=== PATIENT | female | born 1965 | race Two or more races ===

== ENCOUNTER 2017-11-03 23:01 | Emergency (ER) | payer SELFPAY ==
[~2017-11-03] VITALS: Ht 162.6 cm; Wt 145.1 kg
[~2017-11-03 23:01] MED LIST: ASP81EC PO; CANA100T OR; INSLANTI SC; INSLISPI SC; INSU0.5M41 SC; LEVO75TA6 PO; LOSA50TA6 PO; SITA100T7 PO
[2017-11-03] MEDS ORDERED: SODIUM CHLORIDE 0.9% 1,000 ML IV ONE (23:45)
[2017-11-03 23:49] LABS: Eosinophils # (auto) 0.2 uL; Hemoglobin 15.8 g/dL (12.2-16.2); Lymphocytes # (auto) 1.7 uL; Monocytes # (auto) 0.4 uL; Platelet Count (auto) 199 10^3/uL (140-450); Red Cell Distribution Width 17.2 % (11.8-14.3)
[2017-11-03 23:58] LABS: INR 0.97 (0.9-1.15); Partial Thromboplastin Time 28.8 sec (23.78-33.04); Prothrombin Time 10.4 sec (9.27-12.13)
[2017-11-03 23:59] LABS: Basophils # (auto) 0 uL; Basophils % (auto) 0.5 % (0.0-2.0); Eosinophils % (auto) 2.3 % (0.0-7.0); Hematocrit 48.9 % (36.0-46.0); Lymphocytes % (auto) 24.1 % (10.0-50.0); Mean Corpuscular Hemoglobin 28.3 pg (28.0-32.0); Mean Corpuscular Hgb Conc. 32.2 g/dL (32.0-36.0); Mean Corpuscular Volume 87.9 fL (80.0-100.0); Monocytes % (auto) 5.4 % (0.0-12.0); Neutrophils # (auto) 4.8 uL; Neutrophils % (auto) 67.7 % (37.0-80.0); Nucleated Red Blood Cells % 0.2 %; Red Blood Cells 5.56 10^6/uL (4.0-5.20)
[2017-11-04] LABS: Alanine Aminotransferase 62 U/L (13-56); Albumin 3.1 g/dL (3.4-5.0); Anion Gap 9 (5-15); Aspartate Aminotransferase 36 U/L (15-37); BUN/Creatinine Ratio 18.7; Blood Urea Nitrogen 14 mg/dL (7-18); Calcium 8.1 mg/dL (8.5-10.1); Carbon Dioxide 25 mmol/L (21-32); Chloride 100 mmol/L (98-107); GFR African American 104 mL/min; GFR Non-African American 86 mL/min; Potassium 3.9 mmol/L (3.5-5.1); Sodium 134 mmol/L (136-145)
[2017-11-04 00:02] LABS: Total Protein 8.1 g/dL (6.4-8.2)
[2017-11-04 00:03] LABS: Glucose 445 mg/dL (74-106)
[2017-11-04 00:05] LABS: Alkaline Phosphatase 167 U/L (45-117); Bilirubin, Total 0.4 mg/dL (0.2-1.0)
[2017-11-04] MEDS ORDERED: SODIUM CHLORIDE 0.9% 1,000 ML IV ONE (00:30)
[2017-11-04] MEDS ORDERED: InsuLIN REG 1unit/0.01ml Soln (100units/ml) IV ONE (00:30)
[2017-11-04 02:14] LABS: Urine Bacteria NONE SEEN /hpf (None Seen); Urine Blood Negative /uL (Negative); Urine Specific Gravity 1.024 (1.001-1.035); Urine WBC 1 /hpf (0 - 5)
[2017-11-04 09:21] VITALS: BP 129/91
== END 2017-11-04 10:31 | disposition home or self-care (01) ==
LOC: EDBD 23:01 → EDUNIT# 23:01 → ER 23:10
DX: E11.65 Type 2 diabetes mellitus with hyperglycemia (principal); E86.0 Dehydration; R07.89 Other chest pain; E66.01 Morbid (severe) obesity due to excess calories; G47.30 Sleep apnea, unspecified; E11.9 Type 2 diabetes mellitus without complications; I10 Essential (primary) hypertension; E07.89 Other specified disorders of thyroid; Z68.43 Body mass index [BMI] 50.0-59.9, adult
CPT/HCPCS: 36415; 71045; 80053; 81001; 81025; 82010; 82962; 83690; 84484; 85025; 85610; 85730; 93005; 96361; 96374

== ENCOUNTER 2018-06-12 06:31 | Inpatient (IN) | payer OTHER ==
[~2018-06-12] VITALS: Ht 165.1 cm; Wt 141.1 kg
[~2018-06-12 06:31] MED LIST changes: +LOSA-46 PO; -LOSA50TA6 PO
[2018-06-12] MEDS ORDERED: MORPHINE SULFATE 4 MG/ML SYR/VIAL IV ONE (07:00)
[2018-06-12] MEDS ORDERED: ONDANSETRON HCL 4 MG/2 ML VIAL IV ONE (07:00)
[2018-06-12 07:41] LABS: Basophils # (auto) 0 uL; Basophils % (auto) 0.3 % (0.0-2.0); Eosinophils # (auto) 0.1 uL; Eosinophils % (auto) 1.9 % (0.0-7.0); Hematocrit 50.6 % (36.0-46.0); Hemoglobin 16.9 g/dL (12.2-16.2); Lymphocytes # (auto) 1.5 uL; Lymphocytes % (auto) 22.9 % (10.0-50.0); Mean Corpuscular Hemoglobin 29.1 pg (28.0-32.0); Mean Corpuscular Hgb Conc. 33.4 g/dL (32.0-36.0); Mean Corpuscular Volume 87.1 fL (80.0-100.0); Monocytes # (auto) 0.3 uL; Monocytes % (auto) 4.7 % (0.0-12.0); Neutrophils # (auto) 4.7 uL; Neutrophils % (auto) 70.2 % (37.0-80.0); Nucleated Red Blood Cells % 0.2 %; Platelet Count (auto) 206 10^3/uL (140-450); Red Blood Cells 5.81 10^6/uL (4.0-5.20); Red Cell Distribution Width 16.4 % (11.8-14.3); White Blood Cell 6.7 10^3/uL (4.4-10.8)
[2018-06-12 07:59] LABS: Albumin 3.7 g/dL (3.4-5.0); Anion Gap 9 (5-15); Blood Urea Nitrogen 9 mg/dL (7-18); Calcium 8.7 mg/dL (8.5-10.1); Carbon Dioxide 25 mmol/L (21-32); Chloride 105 mmol/L (98-107); Glucose 116 mg/dL (74-106); Magnesium 2.3 mg/dL (1.6-2.6); Potassium 3.7 mmol/L (3.5-5.1); Sodium 139 mmol/L (136-145)
[2018-06-12 08:04] LABS: Alanine Aminotransferase 48 U/L (13-56); Alkaline Phosphatase 100 U/L (45-117); Aspartate Aminotransferase 33 U/L (15-37); BUN/Creatinine Ratio 15.3; Bilirubin, Total 0.9 mg/dL (0.2-1.0); GFR African American 137 mL/min; GFR Non-African American 113 mL/min; Total Protein 8.5 g/dL (6.4-8.2)
[2018-06-12 08:21] LABS: INR 1.04 (0.9-1.15); Partial Thromboplastin Time 27.9 sec (23.78-33.04); Prothrombin Time 11.1 sec (9.27-12.13)
[2018-06-12] MEDS ORDERED: FUROSEMIDE 40 MG/4 ML VIAL IV ONE ×2 (09:15)
[2018-06-12] MEDS ORDERED: NITROGLYCERIN 0.4 MG SL TAB SL PRN (09:45)
[2018-06-12] MEDS ORDERED: DEXTROSE (50%) 50ML SYRG IV PRN (09:45)
[2018-06-12] MEDS ORDERED: PROMETHAZINE HCL 25 MG/ML 1ML IV PRN (09:45)
[2018-06-12] MEDS ORDERED: Sitagliptin Phosphate (Januvia) 100MG TABLET PO SCH (10:00)
[2018-06-12] MEDS ORDERED: LOSARTAN POTASSIUM 50 MG TAB PO SCH (10:00)
[2018-06-12] MEDS: LISINOPRIL 5 MG TAB PO SCH (10:00)
[2018-06-12] MEDS: ENOXAPARIN SOD 100 MG/1 ML SYRINGE SC SCH ×2 (10:10→23:59)
[2018-06-12] MEDS: PANTOPRAZOLE 40 MG TAB PO SCH (10:10)
[2018-06-12] MEDS: NITROGLYCERIN 0.2MG/HR TOPICAL PATCH TD SCH (10:10)
[2018-06-12] MEDS: ASPirin-EC 81 mg tab PO SCH (10:10)
[2018-06-12] MEDS: LEVOTHYROXINE SODIUM 25 MCG TAB PO SCH (10:10)
[2018-06-12] MEDS: ACCU-CHEK COMFORT CURVE STRIP VI SCH ×3 (12:00→23:45)
[2018-06-12] MEDS: InsuLIN REG 1unit/0.01ml Soln (100units/ml) SC SCH ×3 (12:00→23:45)
[2018-06-12] MEDS: SODIUM CHLOR 0.9% PF (SALINE LOCK) 10ML VIAL/SYR IV SCH ×2 (13:35→23:48)
[2018-06-12] MEDS ORDERED: MORPHINE SULF INJ 2 MG/ML SYRINGE 1ML ONE (14:40)
[2018-06-12] MEDS: MORPHINE SULF INJ 2 MG/ML SYRINGE 1ML IV PRN (14:48)
[2018-06-12 15:06] LABS: Alcohol, Urine < 3.0 mg/dL (0-5); Amphetamine Screen, Urine NEGATIVE (NEGATIVE); Barbiturate Scree,Urine NEGATIVE (NEGATIVE); Benzodiazephine Screen, Urine NEGATIVE (NEGATIVE); Cannabinoid Screen, Urine NEGATIVE (NEGATIVE); Cocaine Screen, Urine NEGATIVE (NEGATIVE); Opiate Scree,Urine NEGATIVE (NEGATIVE); Phencyclidine Screen, Urine NEGATIVE (NEGATIVE)
[2018-06-12] MEDS ORDERED: ATORVASTATIN 20 MG TAB PO SCH (22:00)
[2018-06-12 22:35] VITALS: BP 100/55
--- NOTE | 2018-06-12 22:35 | NUR ---
Telemetry admit from [facility] admitted to Telemetry unit without report. Patient oriented to Charissa Schultz, primary RN, unit, room, bed, and unit policies regarding patient care and visiting hours. Patient now on continuous telemetry monitoring, tele box # 21. Patient placed on bedside oxygen 3L via nc, weighed by bed scale and encouraged to call if they need something. All questions and concerns addressed, patient and family verbalized understanding. Bed is locked and in lowest position. Call light is within reach.
--- NOTE | 2018-06-12 23:00 | NUR ---
Chest pain Patient states, "I am having chest pain and it is about a 6/10." Shanice the patient's daughter states," Once the chest pain starts my mom starts to work herself up until she can not breath. This nurse will get an EKG.
--- NOTE | 2018-06-12 23:09 | NUR ---
Ekg Performed EKG and it matches previous EKG from earlier will continue to monitor. Vitals are Temperature 98.0, pulse 74, O2 98%, BP 97/45.
[2018-06-12] MEDS ORDERED: ENOXAPARIN SOD 100 MG/1 ML SYRINGE SC ONE (23:55)
[2018-06-12] MEDS: ATORVASTATIN 20 MG TAB PO SCH (23:59)
[2018-06-12] MEDS: INSULIN LANTUS (GLARGINE) 1 /0.01ml (100units/ml) SC SCH (23:59)
[2018-06-13] VITALS (7 sets, daily range): BP systolic 90–131; BP diastolic 55–69
[2018-06-13] MEDS ORDERED: TEMAZEPAM 15 MG CAP ONE (00:04)
[2018-06-13] MEDS: TEMAZEPAM 15 MG CAP PO PRN ×2 (00:10→21:56)
[2018-06-13] MEDS ORDERED: LISI2.5T47 PO (00:19)
[2018-06-13] MEDS ORDERED: METF-371 PO (00:19)
[2018-06-13] MEDS ORDERED: ALBUAER3 IN (00:19)
[2018-06-13] MEDS ORDERED: FURO20TA PO (00:19)
[2018-06-13] MEDS ORDERED: ATO40T PO (00:19)
[2018-06-13] MEDS ORDERED: POTA-167 PO (00:19)
--- NOTE | 2018-06-13 00:24 | NUR ---
Reassessed pain Patient states, "no pain at this time". Patient has no s/s of distress or sob.
[2018-06-13] MEDS: ACCU-CHEK COMFORT CURVE STRIP VI SCH ×4 (06:19→21:59)
[2018-06-13] MEDS: InsuLIN REG 1unit/0.01ml Soln (100units/ml) SC SCH ×4 (06:19→21:54)
[2018-06-13] MEDS: SODIUM CHLOR 0.9% PF (SALINE LOCK) 10ML VIAL/SYR IV SCH ×3 (06:19→21:53)
[2018-06-13 06:45] LABS: Cholesterol 78 mg/dL (< 200); HDL Cholesterol 29 mg/dL (40-59); LDL Cholesterol 42 mg/dL (< 100); Triglycerides 116 mg/dL (< 150)
[2018-06-13] MEDS: LEVOTHYROXINE SODIUM 25 MCG TAB PO SCH (06:54)
--- NOTE | 2018-06-13 07:22 | NUR ---
CLOSING SHIFT NOTE: ENDORSED CARE TO DAY NURSE MARY. PATIENT STABLE AT THIS TIME. NO S/S OF DISTRESS OR SOB.
--- NOTE | 2018-06-13 07:30 | NUR ---
Opening Shift Note Assumed care of patient, awake and alert. No S/S of distress/SOB or pain. Instructed on POC and to call for assist PRN, will continue to monitor for changes Q1hr and PRN. Bed locked in lowest position with two side rails up and call light in reach.
[2018-06-13] MEDS: ENOXAPARIN SOD 100 MG/1 ML SYRINGE SC SCH ×2 (10:14→21:54)
[2018-06-13] MEDS: LISINOPRIL 5 MG TAB PO SCH (10:14)
[2018-06-13] MEDS: PANTOPRAZOLE 40 MG TAB PO SCH (10:14)
[2018-06-13] MEDS: ASPirin-EC 81 mg tab PO SCH (10:14)
[2018-06-13] MEDS: NITROGLYCERIN 0.2MG/HR TOPICAL PATCH TD SCH (10:14)
--- NOTE | 2018-06-13 13:30 | NUR ---
DR PEPE MITCHELL.
[2018-06-13] MEDS ORDERED: OPTISON 3ml Vial for INJ IV ONE (14:27)
[2018-06-13] MEDS: ATORVASTATIN 20 MG TAB PO SCH (21:54)
[2018-06-13] MEDS: traMADol HCL 50 MG TAB PO PRN (21:57)
[2018-06-13] MEDS: INSULIN LANTUS (GLARGINE) 1 /0.01ml (100units/ml) SC SCH (21:58)
[2018-06-14] MEDS: InsuLIN REG 1unit/0.01ml Soln (100units/ml) SC SCH ×4 (06:10→21:48)
[2018-06-14] MEDS: LEVOTHYROXINE SODIUM 25 MCG TAB PO SCH (06:32)
[2018-06-14] MEDS: ACCU-CHEK COMFORT CURVE STRIP VI SCH ×4 (06:32→21:49)
[2018-06-14] MEDS: SODIUM CHLOR 0.9% PF (SALINE LOCK) 10ML VIAL/SYR IV SCH ×3 (06:33→21:48)
--- NOTE | 2018-06-14 07:50 | NUR ---
PT RESTING IN BED WITH EYES CLOSED. BILATERAL CHEST MOVEMENT WITH SPONTANEOUS RESPIRATION, NO S/S OF ACUTE DISTRESS NOTED. BED LOCKED IN THE LOWEST POSITION, CALL LIGHT WITHIN EASY REACH, WILL CONTINUE TO MONITOR.
[2018-06-14 08:00] VITALS: BP 137/71
[2018-06-14 09:00] VITALS: BP 137/71
--- NOTE | 2018-06-14 09:00 | NUR ---
DR. CANTU AT BEDSIDE. POC DISCUSSED WITH PT.
[2018-06-14] MEDS: ASPirin-EC 81 mg tab PO SCH (09:58)
[2018-06-14] MEDS: LISINOPRIL 5 MG TAB PO SCH (09:58)
[2018-06-14] MEDS: PANTOPRAZOLE 40 MG TAB PO SCH (09:58)
[2018-06-14] MEDS: ENOXAPARIN SOD 100 MG/1 ML SYRINGE SC SCH ×2 (09:59→21:49)
[2018-06-14] MEDS: NITROGLYCERIN 0.2MG/HR TOPICAL PATCH TD SCH ×2 (10:00→11:39)
[2018-06-14 13:00] VITALS: BP 112/65
[2018-06-14] MEDS: traMADol HCL 50 MG TAB PO PRN (14:50)
[2018-06-14 17:00] VITALS: BP 113/58
--- NOTE | 2018-06-14 19:10 | NUR ---
Opening Shift Note Assumed care of patient, awake and alert. No S/S of distress/SOB or pain. Instructed on POC and to call for assist PRN, will continue to monitor for changes Q1hr and PRN. Side rails up x2. Bed locked in lowest position. Call light within reach. Family at bedside.
--- NOTE | 2018-06-14 19:13 | NUR ---
CARE ENDORSED TO CHRISTIANO GRAVES.
[2018-06-14] MEDS: ATORVASTATIN 20 MG TAB PO SCH (21:48)
[2018-06-14] MEDS: INSULIN LANTUS (GLARGINE) 1 /0.01ml (100units/ml) SC SCH (21:48)
[2018-06-14 22:00] VITALS: BP 104/53
--- NOTE | 2018-06-15 02:23 | NUR ---
Rounds Patient in bed asleep with no signs of distress/sob/pain. Will continue to monitor.
[2018-06-15 06:18] VITALS: BP 98/48
[2018-06-15] MEDS: SODIUM CHLOR 0.9% PF (SALINE LOCK) 10ML VIAL/SYR IV SCH ×3 (06:48→21:14)
[2018-06-15] MEDS: LEVOTHYROXINE SODIUM 25 MCG TAB PO SCH (06:48)
[2018-06-15] MEDS: ACCU-CHEK COMFORT CURVE STRIP VI SCH ×4 (06:48→21:14)
[2018-06-15] MEDS: InsuLIN REG 1unit/0.01ml Soln (100units/ml) SC SCH ×4 (06:49→21:15)
--- NOTE | 2018-06-15 07:20 | NUR ---
Endorsed care to day shift RN.
[2018-06-15 09:00] VITALS: BP 97/55
[2018-06-15] MEDS: NITROGLYCERIN 0.2MG/HR TOPICAL PATCH TD SCH (10:00)
[2018-06-15] MEDS: LISINOPRIL 5 MG TAB PO SCH (10:39)
[2018-06-15] MEDS: ASPirin-EC 81 mg tab PO SCH (10:39)
[2018-06-15] MEDS: PANTOPRAZOLE 40 MG TAB PO SCH (10:39)
[2018-06-15] MEDS: ENOXAPARIN SOD 100 MG/1 ML SYRINGE SC SCH ×2 (10:40→21:15)
[2018-06-15 13:00] VITALS: BP 112/67
--- NOTE | 2018-06-15 13:54 | NUR ---
NUTRITION ASSESSMENT NOTES Please refer to link notes of nutrition screen form filed under the intervention section of the plan of care for further details. Est. Needs based on AdBW (721 kg): 1400 kcal to 1750 kcal (20-25 kcal/kgAdBW), 71 gms to 85 gms pro (1.0-1.2 gms/kgAdBW). Will continue to monitor pertinent labs and reassess nutrient need prn Thank you. Addendum: 06/15/18 at [address] Amended: Links added.
[2018-06-15 17:00] VITALS: BP 119/68
[2018-06-15] MEDS: INSULIN LANTUS (GLARGINE) 1 /0.01ml (100units/ml) SC SCH (21:15)
[2018-06-15] MEDS: ATORVASTATIN 20 MG TAB PO SCH (21:15)
[2018-06-15] MEDS: TEMAZEPAM 15 MG CAP PO PRN (21:16)
[2018-06-15 22:00] VITALS: BP 104/53
--- NOTE | 2018-06-16 02:34 | NUR ---
Rounds Patient in bed asleep with no signs of distress/sob/pain.
[2018-06-16 05:00] VITALS: BP 112/68
--- NOTE | 2018-06-16 06:45 | NUR ---
2nd IV inserted For stress test IV access obtained, via clean sterile technique by inserting 22 gauge catheter on right hand after 1 attempt. IV secured properly. No trauma to site. Patient tolerated well.
[2018-06-16] MEDS: LEVOTHYROXINE SODIUM 25 MCG TAB PO SCH (06:53)
[2018-06-16] MEDS: SODIUM CHLOR 0.9% PF (SALINE LOCK) 10ML VIAL/SYR IV SCH ×3 (06:53→21:33)
[2018-06-16] MEDS: ACCU-CHEK COMFORT CURVE STRIP VI SCH ×4 (06:53→21:40)
[2018-06-16] MEDS: InsuLIN REG 1unit/0.01ml Soln (100units/ml) SC SCH ×4 (06:53→21:40)
--- NOTE | 2018-06-16 07:36 | NUR ---
Endorsed care to day shift RN.
[2018-06-16] MEDS ORDERED: ADENOSINE 119 MG in GIVE UN-DILUTED 0 ML IV STA (08:29)
[2018-06-16 09:00] VITALS: BP 117/63
[2018-06-16] MEDS: NITROGLYCERIN 0.2MG/HR TOPICAL PATCH TD SCH (10:00)
[2018-06-16] MEDS: PANTOPRAZOLE 40 MG TAB PO SCH (10:15)
[2018-06-16] MEDS: ASPirin-EC 81 mg tab PO SCH (10:15)
[2018-06-16] MEDS: ENOXAPARIN SOD 100 MG/1 ML SYRINGE SC SCH ×2 (10:16→21:33)
[2018-06-16] MEDS: LISINOPRIL 5 MG TAB PO SCH (10:16)
[2018-06-16 12:00] VITALS: BP 132/77
[2018-06-16 17:12] VITALS: BP 119/68
[2018-06-16] MEDS: MORPHINE SULF INJ 2 MG/ML SYRINGE 1ML IV PRN (17:47)
--- NOTE | 2018-06-16 19:50 | NUR ---
Opening Shift Note Assumed care of patient, awake and alert, oriented x 4. On room air with even and unlabored respirations. No S/S of distress or SOB. IV's intact and patent. Patient ambulates independently. Bed low locked position with side rails up x 2 and call light within reach. Instructed on POC and to call for assist PRN, will continue to monitor for changes Q1hr and PRN.
[2018-06-16 21:30] VITALS: BP 121/85
[2018-06-16] MEDS: ATORVASTATIN 20 MG TAB PO SCH (21:33)
[2018-06-16] MEDS: INSULIN LANTUS (GLARGINE) 1 /0.01ml (100units/ml) SC SCH (21:40)
[2018-06-16] MEDS: traMADol HCL 50 MG TAB PO PRN (21:40)
[2018-06-16] MEDS: TEMAZEPAM 15 MG CAP PO PRN (22:10)
[2018-06-17 05:00] VITALS: BP 102/46
[2018-06-17] MEDS: SODIUM CHLOR 0.9% PF (SALINE LOCK) 10ML VIAL/SYR IV SCH ×2 (06:29→13:06)
[2018-06-17] MEDS: ACCU-CHEK COMFORT CURVE STRIP VI SCH ×2 (06:30→11:30)
[2018-06-17] MEDS: LEVOTHYROXINE SODIUM 25 MCG TAB PO SCH (06:30)
[2018-06-17] MEDS: InsuLIN REG 1unit/0.01ml Soln (100units/ml) SC SCH ×2 (06:30→11:30)
[2018-06-17] MEDS: ACETAMINOPHEN 500 MG TAB PO PRN ×2 (06:30→11:50)
--- NOTE | 2018-06-17 07:05 | NUR ---
Closing Note patient resting in bed with even and unlabored respirations. No s/s of distress. Bed low locked position with side rails up x 2 and call light within reach. Endorsed care to day shift R
[2018-06-17] MEDS: NITROGLYCERIN 0.2MG/HR TOPICAL PATCH TD SCH (10:00)
[2018-06-17] MEDS: LISINOPRIL 5 MG TAB PO SCH (10:00)
[2018-06-17] MEDS: PANTOPRAZOLE 40 MG TAB PO SCH (10:00)
[2018-06-17] MEDS: ASPirin-EC 81 mg tab PO SCH (10:00)
[2018-06-17] MEDS: ENOXAPARIN SOD 100 MG/1 ML SYRINGE SC SCH (10:00)
[2018-06-17] MEDS: MORPHINE SULF INJ 2 MG/ML SYRINGE 1ML IV PRN (13:09)
[2018-06-17 14:16] VITALS: BP 132/72
== END 2018-06-17 15:40 | disposition home or self-care (01) | DRG 292 ==
LOC: ER 06:31 → EDBD 06:31 → ER 09:03 → TELE 09:39 → TELE-EAST 22:38
PROVIDERS: ADMIT Internal Medicine; ATTEND Family Medicine
DX: I11.0 Hypertensive heart disease with heart failure (principal); Z68.43 Body mass index [BMI] 50.0-59.9, adult; R07.89 Other chest pain; E03.9 Hypothyroidism, unspecified; E11.9 Type 2 diabetes mellitus without complications; E66.01 Morbid (severe) obesity due to excess calories; E78.00 Pure hypercholesterolemia, unspecified; E78.5 Hyperlipidemia, unspecified; I25.10 Atherosclerotic heart disease of native coronary artery without angina pectoris; Z82.49 Family history of ischemic heart disease and other diseases of the circulatory system; Z83.3 Family history of diabetes mellitus; Z79.4 Long term (current) use of insulin; Z79.82 Long term (current) use of aspirin; Z71.3 Dietary counseling and surveillance; I50.43 Acute on chronic combined systolic (congestive) and diastolic (congestive) heart failure
CPT/HCPCS: 36415; 71045; 78452; 80053; 80061; 80307; 82550; 82962; 83036; 83735; 83880; 84443; 84484; 85025; 85379; 85610; 85652; 85730; 86141; 93005; 93017; 93306; 94761; 96374; 96375; G0378; J0153; J1815; J2405; Q9956

== ENCOUNTER 2018-07-07 20:13 | Emergency (ER) | payer OTHER ==
[~2018-07-07] VITALS: Ht 154.9 cm; Wt 137.0 kg
[~2018-07-07 20:13] MED LIST changes: +ALBUAER3 IN; -ASP81EC PO; +ATO40T PO; -CANA100T OR; +FURO20TA PO; -INSLANTI SC; -INSLISPI SC; -INSU0.5M41 SC; -LEVO75TA6 PO; +LISI2.5T47 PO; -LOSA-46 PO; +METF-371 PO; +POTA-167 PO; -SITA100T7 PO
[2018-07-07 23:19] LABS: Basophils # (auto) 0.2 uL; Eosinophils # (auto) 0.2 uL; Eosinophils % (auto) 2.9 % (0.0-7.0); Hematocrit 45.3 % (36.0-46.0); Hemoglobin 15.1 g/dL (12.2-16.2); Lymphocytes # (auto) 0.7 uL; Lymphocytes % (auto) 9.4 % (10.0-50.0); Mean Corpuscular Hemoglobin 29.4 pg (28.0-32.0); Mean Corpuscular Hgb Conc. 33.4 g/dL (32.0-36.0); Mean Corpuscular Volume 88.3 fL (80.0-100.0); Monocytes # (auto) 0.4 uL; Monocytes % (auto) 5.6 % (0.0-12.0); Neutrophils # (auto) 6.3 uL; Neutrophils % (auto) 80.1 % (37.0-80.0); Platelet Count (auto) 215 10^3/uL (140-450); Red Blood Cells 5.13 10^6/uL (4.0-5.20); Red Cell Distribution Width 16.8 % (11.8-14.3); White Blood Cell 7.9 10^3/uL (4.4-10.8)
[2018-07-07 23:38] LABS: Albumin 3.6 g/dL (3.4-5.0); Anion Gap 8 (5-15); Blood Urea Nitrogen 20 mg/dL (7-18); Calcium 8.9 mg/dL (8.5-10.1); Carbon Dioxide 24 mmol/L (21-32); Chloride 106 mmol/L (98-107); Glucose 103 mg/dL (74-106); INR 0.99 (0.9-1.15); Lipase 196 U/L (73-393); Magnesium 2.3 mg/dL (1.6-2.6); Potassium 3.8 mmol/L (3.5-5.1); Sodium 138 mmol/L (136-145)
[2018-07-07 23:40] LABS: Alanine Aminotransferase 47 U/L (13-56); Alkaline Phosphatase 92 U/L (45-117); Aspartate Aminotransferase 24 U/L (15-37); BUN/Creatinine Ratio 25.6; Bilirubin, Total 0.6 mg/dL (0.2-1.0); GFR African American 99 mL/min; GFR Non-African American 82 mL/min; Total Protein 8.4 g/dL (6.4-8.2)
[2018-07-08 00:04] LABS: CRP High Sensitivity 3.28 mg/dL (< 0.3)
[2018-07-08 01:00] VITALS: BP 148/78
== END 2018-07-08 01:02 | disposition home or self-care (01) ==
LOC: ER 20:13
DX: J40 Bronchitis, not specified as acute or chronic (principal); M94.0 Chondrocostal junction syndrome [Tietze]; Z68.43 Body mass index [BMI] 50.0-59.9, adult; I11.0 Hypertensive heart disease with heart failure; I50.9 Heart failure, unspecified; E78.5 Hyperlipidemia, unspecified; Z90.89 Acquired absence of other organs; E66.01 Morbid (severe) obesity due to excess calories; Z86.73 Personal history of transient ischemic attack (TIA), and cerebral infarction without residual deficits
CPT/HCPCS: 36415; 71046; 80053; 83690; 83735; 83880; 84484; 84702; 85025; 85379; 85610; 86141; 93005

== ENCOUNTER 2020-02-17 10:10 | Inpatient (IN) | payer OTHER ==
[~2020-02-17] VITALS: Ht 162.6 cm; Wt 119.0 kg
[~2020-02-17 10:10] MED LIST changes: +FURO1TAB33 PO; -FURO20TA PO
[2020-02-17] MEDS ORDERED: DexAMETHasone SOD PHOS 10MG/1ML VIAL INJ IV ONE (12:15)
[2020-02-17] MEDS ORDERED: DOXYCYCLINE 100MG/250ML 250 ML IV ONE (12:15)
[2020-02-17 14:28] LABS: Basophils # (auto) 0 10 ^3/uL (0-0.2); Basophils % (auto) 0.2 % (0.0-2.0); Eosinophils # (auto) 0 10 ^3/uL (0-0.8); Hematocrit 43.9 % (36.0-46.0); Hemoglobin 14.6 g/dL (12.2-16.2); Lymphocytes # (auto) 0.5 10 ^3/uL (0.4-5.4); Lymphocytes % (auto) 7.5 % (10.0-50.0); Mean Corpuscular Hemoglobin 28.5 pg (28.0-32.0); Mean Corpuscular Hgb Conc. 33.2 g/dL (32.0-36.0); Mean Corpuscular Volume 85.8 fL (80.0-100.0); Monocytes # (auto) 0.2 10 ^3/uL (0-1.3); Monocytes % (auto) 2.9 % (0.0-12.0); Neutrophils # (auto) 5.8 10 ^3/uL (1.6-8.6); Neutrophils % (auto) 89.4 % (37.0-80.0); Nucleated Red Blood Cells % 0.1 %; Platelet Count (auto) 197 10^3/uL (140-450); Red Blood Cells 5.11 10^6/uL (4.0-5.20); Red Cell Distribution Width 15.6 % (11.8-14.3); White Blood Cell 6.5 10^3/uL (4.4-10.8)
[2020-02-17 14:44] LABS: Anion Gap 5 (5-15); Blood Urea Nitrogen 8 mg/dL (7-18); Calcium 8.3 mg/dL (8.5-10.1); Carbon Dioxide 27 mmol/L (21-32); Chloride 103 mmol/L (98-107); Glucose 135 mg/dL (74-106); Potassium 4.1 mmol/L (3.5-5.1); Sodium 135 mmol/L (136-145)
[2020-02-17 14:51] LABS: Alanine Aminotransferase 87 U/L (13-56); Alkaline Phosphatase 71 U/L (45-117); Aspartate Aminotransferase 80 U/L (15-37); BUN/Creatinine Ratio 13.3; Bilirubin, Total 0.5 mg/dL (0.2-1.0); GFR African American 133 mL/min; GFR Non-African American 110 mL/min; Total Protein 7.9 g/dL (6.4-8.2)
[2020-02-17] MEDS ORDERED: SODIUM CHLORIDE 0.9% 1,000 ML IV ONE (15:00)
[2020-02-17] MEDS ORDERED: ACETAMINOPHEN 325 MG TAB PO ONE (15:15)
[2020-02-17] MEDS ORDERED: NITROGLYCERIN 0.4 MG SL TAB SL PRN (18:45)
[2020-02-17] MEDS ORDERED: ACETAMINOPHEN 500 MG TAB PO PRN (18:45)
[2020-02-17] MEDS ORDERED: ONDANSETRON HCL 4 MG/2 ML VIAL IV PRN (18:45)
[2020-02-17] MEDS ORDERED: HYDROcodone-ACET 5/325MG TAB PO PRN (18:45)
[2020-02-17] MEDS ORDERED: REMDESIVIR PER PHARMACY 0 ML IV SCH (18:45)
[2020-02-17] MEDS ORDERED: DEXTROSE (50%) 50ML SYRG IV PRN (18:45)
[2020-02-17] MEDS ORDERED: MORPHINE SULF INJ 2 MG/ML SYRINGE 1ML IV PRN ×2 (18:45)
[2020-02-17] MEDS: BUDESONIDE (INHALATION) 180 MCG IH IN SCH (22:00)
[2020-02-17 22:42] LABS: Magnesium 2.4 mg/dL (1.6-2.6)
[2020-02-17 22:50] LABS: CRP High Sensitivity 16.6 mg/dL (< 0.3)
[2020-02-17] MEDS ORDERED: REMDESIVIR 200 MG in NS 210ml LOADING DOSE ADULT IV ONE (23:00)
[2020-02-17] MEDS: ACCU-CHEK COMFORT CURVE STRIP VI SCH (23:29)
[2020-02-17 23:30] VITALS: BP 122/40
[2020-02-17] MEDS: InsuLIN REG 1unit/0.01ml Soln (100units/ml) SC SCH (23:37)
[2020-02-17] MEDS: ENOXAPARIN SOD 40 MG/0.4 ML SYRINGE SC SCH (23:37)
[2020-02-18 05:26] LABS: Basophils # (auto) 0 10 ^3/uL (0-0.2); Basophils % (auto) 0.1 % (0.0-2.0); Eosinophils # (auto) 0 10 ^3/uL (0-0.8); Eosinophils % (auto) 0.1 % (0.0-7.0); Hematocrit 42.6 % (36.0-46.0); Hemoglobin 14.2 g/dL (12.2-16.2); Lymphocytes # (auto) 0.4 10 ^3/uL (0.4-5.4); Lymphocytes % (auto) 7.3 % (10.0-50.0); Mean Corpuscular Hemoglobin 28.4 pg (28.0-32.0); Mean Corpuscular Hgb Conc. 33.3 g/dL (32.0-36.0); Mean Corpuscular Volume 85.2 fL (80.0-100.0); Monocytes # (auto) 0.3 10 ^3/uL (0-1.3); Monocytes % (auto) 5.8 % (0.0-12.0); Neutrophils # (auto) 4.8 10 ^3/uL (1.6-8.6); Neutrophils % (auto) 86.7 % (37.0-80.0); Nucleated Red Blood Cells % 0.1 %; Platelet Count (auto) 213 10^3/uL (140-450); Red Cell Distribution Width 15.5 % (11.8-14.3); White Blood Cell 5.6 10^3/uL (4.4-10.8)
[2020-02-18 05:47] LABS: Potassium 3.9 mmol/L (3.5-5.1)
[2020-02-18 05:56] LABS: BUN/Creatinine Ratio 16.3; Calcium 8.6 mg/dL (8.5-10.1)
[2020-02-18 06:52] VITALS: BP 106/50
[2020-02-18] MEDS: InsuLIN REG 1unit/0.01ml Soln (100units/ml) SC SCH ×4 (07:00→22:00)
[2020-02-18] MEDS: ACCU-CHEK COMFORT CURVE STRIP VI SCH ×4 (07:00→22:00)
[2020-02-18] MEDS: BUDESONIDE (INHALATION) 180 MCG IH IN SCH ×2 (07:40→21:00)
[2020-02-18] MEDS: cefTRIAXone 1GM/50ML D5W 50 ML IV SCH (08:31)
[2020-02-18] MEDS: ASCORBIC ACID 1,000 MG TAB PO SCH (10:00)
[2020-02-18] MEDS: ZINC SULFATE 220mg CAP or TAB PO SCH (10:00)
[2020-02-18] MEDS: FAMOTIDINE 20 MG TAB PO SCH (10:00)
[2020-02-18] MEDS: ENOXAPARIN SOD 40 MG/0.4 ML SYRINGE SC SCH ×2 (10:00→22:00)
[2020-02-18] MEDS: DexAMETHasone SOD PHOS 10MG/1ML VIAL INJ IV SCH (10:00)
[2020-02-18] MEDS: AZITHROMYCIN 500MG/ 250ML 250 ML IV SCH (10:00)
[2020-02-18] MEDS: CHOLECALCIFEROL (VITD3) 2,000 UNIT CAP PO SCH (10:00)
[2020-02-18] MEDS: REMDESIVIR 100 MG in SODIUM CHL 0.9% 250 ML IV SCH (15:00)
[2020-02-18 18:40] VITALS: BP 112/67
[2020-02-18] MEDS: ALBUTEROL SULF HFA 90MCG INH 200DOSE IN PRN (23:53)
[2020-02-18 23:55] VITALS: BP 102/63
[2020-02-19] VITALS (8 sets, daily range): BP systolic 99–125; BP diastolic 51–69
[2020-02-19] MEDS: BUDESONIDE (INHALATION) 180 MCG IH IN SCH ×2 (06:24→19:02)
[2020-02-19] MEDS: ACCU-CHEK COMFORT CURVE STRIP VI SCH ×4 (06:43→21:46)
[2020-02-19] MEDS: InsuLIN REG 1unit/0.01ml Soln (100units/ml) SC SCH ×4 (06:43→21:47)
[2020-02-19 06:50] LABS: Basophils # (auto) 0 10 ^3/uL (0-0.2); Eosinophils # (auto) 0 10 ^3/uL (0-0.8); Hematocrit 42.7 % (36.0-46.0); Hemoglobin 14.1 g/dL (12.2-16.2); Lymphocytes # (auto) 0.6 10 ^3/uL (0.4-5.4); Lymphocytes % (auto) 8.6 % (10.0-50.0); Mean Corpuscular Hemoglobin 28.4 pg (28.0-32.0); Mean Corpuscular Volume 85.8 fL (80.0-100.0); Monocytes # (auto) 0.5 10 ^3/uL (0-1.3); Monocytes % (auto) 6.8 % (0.0-12.0); Neutrophils # (auto) 6.3 10 ^3/uL (1.6-8.6); Neutrophils % (auto) 84.6 % (37.0-80.0); Nucleated Red Blood Cells % 0.1 %; Platelet Count (auto) 276 10^3/uL (140-450); Red Blood Cells 4.97 10^6/uL (4.0-5.20); Red Cell Distribution Width 15.3 % (11.8-14.3); White Blood Cell 7.5 10^3/uL (4.4-10.8)
[2020-02-19 06:59] LABS: Albumin 2.9 g/dL (3.4-5.0); Calcium 8.8 mg/dL (8.5-10.1); Potassium 3.9 mmol/L (3.5-5.1)
[2020-02-19] MEDS: LEVOTHYROXINE SODIUM 25 MCG TAB PO SCH (07:09)
[2020-02-19 07:11] LABS: BUN/Creatinine Ratio 37.5; Bilirubin, Total 0.5 mg/dL (0.2-1.0); CRP High Sensitivity 11.1 mg/dL (< 0.3); Total Protein 7.7 g/dL (6.4-8.2)
[2020-02-19] MEDS: ZINC SULFATE 220mg CAP or TAB PO SCH (09:21)
[2020-02-19] MEDS: CHOLECALCIFEROL (VITD3) 2,000 UNIT CAP PO SCH (09:22)
[2020-02-19] MEDS: FAMOTIDINE 20 MG TAB PO SCH (09:22)
[2020-02-19] MEDS: ASCORBIC ACID 1,000 MG TAB PO SCH (09:22)
[2020-02-19] MEDS: ENOXAPARIN SOD 40 MG/0.4 ML SYRINGE SC SCH ×2 (09:23→21:46)
[2020-02-19] MEDS: cefTRIAXone 1GM/50ML D5W 50 ML IV SCH (09:23)
[2020-02-19] MEDS: DexAMETHasone SOD PHOS 10MG/1ML VIAL INJ IV SCH (09:23)
[2020-02-19] MEDS: AZITHROMYCIN 500MG/ 250ML 250 ML IV SCH (11:35)
[2020-02-19] MEDS: REMDESIVIR 100 MG in SODIUM CHL 0.9% 250 ML IV SCH (15:46)
[2020-02-19] MEDS: ALBUTEROL SULF HFA 90MCG INH 200DOSE IN PRN (19:03)
[2020-02-20] MEDS: guaiFENesin-DM 100/10mg/5ml SYR PO PRN (01:29)
[2020-02-20 06:09] VITALS: BP 103/55
[2020-02-20] MEDS: ACCU-CHEK COMFORT CURVE STRIP VI SCH ×2 (06:27→12:01)
[2020-02-20] MEDS: InsuLIN REG 1unit/0.01ml Soln (100units/ml) SC SCH ×2 (06:27→11:30)
[2020-02-20] MEDS: LEVOTHYROXINE SODIUM 25 MCG TAB PO SCH (06:43)
[2020-02-20 09:00] VITALS: BP 94/54
[2020-02-20] MEDS: AZITHROMYCIN 500MG/ 250ML 250 ML IV SCH (09:44)
[2020-02-20] MEDS: FAMOTIDINE 20 MG TAB PO SCH (09:44)
[2020-02-20] MEDS: DexAMETHasone SOD PHOS 10MG/1ML VIAL INJ IV SCH (09:44)
[2020-02-20] MEDS: cefTRIAXone 1GM/50ML D5W 50 ML IV SCH (09:44)
[2020-02-20] MEDS: CHOLECALCIFEROL (VITD3) 2,000 UNIT CAP PO SCH (09:45)
[2020-02-20] MEDS: ENOXAPARIN SOD 40 MG/0.4 ML SYRINGE SC SCH ×2 (09:45→22:29)
[2020-02-20] MEDS: ZINC SULFATE 220mg CAP or TAB PO SCH (09:45)
[2020-02-20] MEDS: ASCORBIC ACID 1,000 MG TAB PO SCH (09:45)
[2020-02-20] MEDS: BUDESONIDE (INHALATION) 180 MCG IH IN SCH ×2 (10:00→22:00)
[2020-02-20 11:17] LABS: BUN/Creatinine Ratio 29.5; Bilirubin, Total 0.5 mg/dL (0.2-1.0); Calcium 8.6 mg/dL (8.5-10.1); Total Protein 7.9 g/dL (6.4-8.2)
[2020-02-20 13:00] VITALS: BP 107/60
[2020-02-20] MEDS: ALBUTEROL SULF HFA 90MCG INH 200DOSE IN PRN (14:26)
[2020-02-20] MEDS: REMDESIVIR 100 MG in SODIUM CHL 0.9% 250 ML IV SCH (15:00)
[2020-02-20 17:00] VITALS: BP 107/55
[2020-02-20] MEDS ORDERED: PPN PER PHARMACY 0 ML IV SCH (17:30)
[2020-02-20] MEDS ORDERED: FUROSEMIDE 20 MG/2 ML VIAL IV ONE (17:30)
[2020-02-20] MEDS ORDERED: POTASSIUM CHL 20 Meq TABLET PO ONE (17:30)
[2020-02-20 18:28] LABS: Magnesium 2.6 mg/dL (1.6-2.6); Phosphorus 4.7 mg/dL (2.5-4.90)
[2020-02-20 18:32] LABS: Pre Albumin 12.4 mg/dL (20.0-40.0)
[2020-02-20] MEDS ORDERED: CLINIMIX PER PHARMACY IV NR (20:00)
[2020-02-21] MEDS ORDERED: DEXTROSE (50%) 50ML SYRG IV SCH
[2020-02-21 00:30] VITALS: BP 103/61
[2020-02-21 05:00] VITALS: BP 124/69
[2020-02-21] MEDS: ACCU-CHEK COMFORT CURVE STRIP VI SCH ×4 (06:00→18:39)
[2020-02-21] MEDS: InsuLIN REG 1unit/0.01ml Soln (100units/ml) SC SCH ×4 (06:00→18:39)
[2020-02-21] MEDS: ALBUTEROL SULF HFA 90MCG INH 200DOSE IN PRN (06:19)
[2020-02-21] MEDS: BUDESONIDE (INHALATION) 180 MCG IH IN SCH ×3 (06:20→22:00)
[2020-02-21] MEDS: LEVOTHYROXINE SODIUM 25 MCG TAB PO SCH (06:52)
[2020-02-21 07:00] LABS: Albumin 2.8 g/dL (3.4-5.0); Bilirubin, Total 0.6 mg/dL (0.2-1.0); Calcium 8.7 mg/dL (8.5-10.1); Magnesium 2.6 mg/dL (1.6-2.6); Phosphorus 3.7 mg/dL (2.5-4.90); Total Protein 7.4 g/dL (6.4-8.2)
[2020-02-21 07:45] LABS: Potassium 3.7 mmol/L (3.5-5.1)
[2020-02-21 08:00] VITALS: BP 119/73
[2020-02-21] MEDS: cefTRIAXone 1GM/50ML D5W 50 ML IV SCH (09:37)
[2020-02-21] MEDS: DexAMETHasone SOD PHOS 10MG/1ML VIAL INJ IV SCH (09:38)
[2020-02-21] MEDS: ZINC SULFATE 220mg CAP or TAB PO SCH (09:38)
[2020-02-21] MEDS: AZITHROMYCIN 500MG/ 250ML 250 ML IV SCH (09:38)
[2020-02-21] MEDS: FAMOTIDINE 20 MG TAB PO SCH (09:39)
[2020-02-21] MEDS: ASCORBIC ACID 1,000 MG TAB PO SCH (09:39)
[2020-02-21] MEDS: ENOXAPARIN SOD 40 MG/0.4 ML SYRINGE SC SCH ×2 (09:40→22:00)
[2020-02-21] MEDS: CHOLECALCIFEROL (VITD3) 2,000 UNIT CAP PO SCH (09:40)
[2020-02-21 12:00] VITALS: BP 111/76
[2020-02-21 17:00] VITALS: BP 109/71
[2020-02-21] MEDS: REMDESIVIR 100 MG in SODIUM CHL 0.9% 250 ML IV SCH (17:09)
[2020-02-21] MEDS ORDERED: PPN PER PHARMACY IV NR ×7 (20:00)
[2020-02-21 22:00] VITALS: BP 134/83
[2020-02-22] MEDS: ACCU-CHEK COMFORT CURVE STRIP VI SCH ×4 (06:00→18:00)
[2020-02-22] MEDS: InsuLIN REG 1unit/0.01ml Soln (100units/ml) SC SCH ×4 (06:00→18:00)
[2020-02-22] MEDS: LEVOTHYROXINE SODIUM 25 MCG TAB PO SCH (07:00)
[2020-02-22 08:00] VITALS: BP 94/66
[2020-02-22 08:08] LABS: Potassium 3.5 mmol/L (3.5-5.1)
[2020-02-22 09:03] LABS: Albumin 2.9 g/dL (3.4-5.0); BUN/Creatinine Ratio 26.1; Bilirubin, Total 0.8 mg/dL (0.2-1.0); Magnesium 2.7 mg/dL (1.6-2.6); Phosphorus 3.1 mg/dL (2.5-4.90); Total Protein 7.9 g/dL (6.4-8.2)
[2020-02-22] MEDS ORDERED: POTASSIUM CHL 20 Meq TABLET PO ONE (09:30)
[2020-02-22] MEDS: BUDESONIDE (INHALATION) 180 MCG IH IN SCH ×2 (10:00→18:20)
[2020-02-22] MEDS: ALBUTEROL SULF HFA 90MCG INH 200DOSE IN PRN (11:22)
[2020-02-22] MEDS: AZITHROMYCIN 500MG/ 250ML 250 ML IV SCH (11:38)
[2020-02-22] MEDS: DexAMETHasone SOD PHOS 10MG/1ML VIAL INJ IV SCH (11:38)
[2020-02-22] MEDS: ZINC SULFATE 220mg CAP or TAB PO SCH (11:38)
[2020-02-22] MEDS: cefTRIAXone 1GM/50ML D5W 50 ML IV SCH (11:38)
[2020-02-22] MEDS: ASCORBIC ACID 1,000 MG TAB PO SCH (11:39)
[2020-02-22] MEDS: FAMOTIDINE 20 MG TAB PO SCH (11:39)
[2020-02-22] MEDS: ENOXAPARIN SOD 40 MG/0.4 ML SYRINGE SC SCH ×2 (11:39→22:00)
[2020-02-22] MEDS: CHOLECALCIFEROL (VITD3) 2,000 UNIT CAP PO SCH (11:39)
[2020-02-22 12:00] VITALS: BP 129/71
[2020-02-22 17:00] VITALS: BP 114/64
[2020-02-22 20:00] VITALS: BP 128/61
[2020-02-22] MEDS ORDERED: PPN PER PHARMACY IV NR ×8 (20:00)
[2020-02-22 22:00] VITALS: BP 128/61
[2020-02-23] MEDS: ACCU-CHEK COMFORT CURVE STRIP VI SCH ×5 (00:04→23:32)
[2020-02-23] MEDS: ALBUTEROL SULF HFA 90MCG INH 200DOSE IN PRN (02:18)
[2020-02-23 05:00] VITALS: BP 138/70
[2020-02-23] MEDS: InsuLIN REG 1unit/0.01ml Soln (100units/ml) SC SCH ×5 (06:00→23:33)
[2020-02-23 06:16] LABS: Potassium 3.8 mmol/L (3.5-5.1)
[2020-02-23 06:26] LABS: Albumin 2.6 g/dL (3.4-5.0); Bilirubin, Total 0.9 mg/dL (0.2-1.0); Calcium 8.8 mg/dL (8.5-10.1); Magnesium 2.6 mg/dL (1.6-2.6); Phosphorus 3.1 mg/dL (2.5-4.90); Total Protein 7.5 g/dL (6.4-8.2)
[2020-02-23] MEDS: LEVOTHYROXINE SODIUM 25 MCG TAB PO SCH (07:02)
[2020-02-23 09:00] VITALS: BP 145/94
[2020-02-23] MEDS: BUDESONIDE (INHALATION) 180 MCG IH IN SCH ×2 (10:00→18:10)
[2020-02-23] MEDS: ENOXAPARIN SOD 40 MG/0.4 ML SYRINGE SC SCH ×2 (10:00→21:30)
[2020-02-23] MEDS: cefTRIAXone 1GM/50ML D5W 50 ML IV SCH (10:20)
[2020-02-23] MEDS: ZINC SULFATE 220mg CAP or TAB PO SCH (10:21)
[2020-02-23] MEDS: FAMOTIDINE 20 MG TAB PO SCH (10:21)
[2020-02-23] MEDS: ASCORBIC ACID 1,000 MG TAB PO SCH (10:21)
[2020-02-23] MEDS: DexAMETHasone SOD PHOS 10MG/1ML VIAL INJ IV SCH (12:00)
[2020-02-23] MEDS: CHOLECALCIFEROL (VITD3) 2,000 UNIT CAP PO SCH (12:00)
[2020-02-23 13:00] VITALS: BP 124/84
[2020-02-23 17:00] VITALS: BP 134/68
[2020-02-23 20:00] VITALS: BP 109/73
[2020-02-23] MEDS ORDERED: PPN PER PHARMACY IV NR ×8 (20:00)
[2020-02-23] MEDS: guaiFENesin-DM 100/10mg/5ml SYR PO PRN (21:29)
[2020-02-23] MEDS ORDERED: ERGOCALCIFEROL 50,000 UNIT(1.25MG) CAP PO SCH (22:00)
[2020-02-24] VITALS: BP 109/73
[2020-02-24] MEDS: ALBUTEROL SULF HFA 90MCG INH 200DOSE IN PRN (03:15)
[2020-02-24] MEDS: guaiFENesin-DM 100/10mg/5ml SYR PO PRN (04:11)
[2020-02-24] MEDS: ACCU-CHEK COMFORT CURVE STRIP VI SCH ×3 (06:05→17:52)
[2020-02-24] MEDS: LEVOTHYROXINE SODIUM 25 MCG TAB PO SCH (06:07)
[2020-02-24 06:13] VITALS: BP 101/88
[2020-02-24 06:22] LABS: Albumin 2.5 g/dL (3.4-5.0); Calcium 8.8 mg/dL (8.5-10.1); Magnesium 2.5 mg/dL (1.6-2.6)
[2020-02-24 06:26] LABS: BUN/Creatinine Ratio 24.5; Phosphorus 3.6 mg/dL (2.5-4.90); Total Protein 7.5 g/dL (6.4-8.2)
[2020-02-24] MEDS: InsuLIN REG 1unit/0.01ml Soln (100units/ml) SC SCH ×3 (07:03→17:57)
[2020-02-24 09:00] VITALS: BP 118/61
[2020-02-24] MEDS: ENOXAPARIN SOD 40 MG/0.4 ML SYRINGE SC SCH ×2 (09:57→21:52)
[2020-02-24] MEDS: cefTRIAXone 1GM/50ML D5W 50 ML IV SCH (09:57)
[2020-02-24] MEDS: ZINC SULFATE 220mg CAP or TAB PO SCH (09:58)
[2020-02-24] MEDS: ASCORBIC ACID 1,000 MG TAB PO SCH (09:58)
[2020-02-24] MEDS: CHOLECALCIFEROL (VITD3) 2,000 UNIT CAP PO SCH (09:58)
[2020-02-24] MEDS: BUDESONIDE (INHALATION) 180 MCG IH IN SCH ×2 (09:58→10:00)
[2020-02-24] MEDS: FAMOTIDINE 20 MG TAB PO SCH (09:58)
[2020-02-24] MEDS: DexAMETHasone SOD PHOS 10MG/1ML VIAL INJ IV SCH (10:03)
[2020-02-24 13:00] VITALS: BP 117/66
[2020-02-24 16:00] VITALS: BP 112/57
[2020-02-24] MEDS: AMINO ACID INFUSION IN D10W 1,000 ML IV NR ×2 (20:07→20:26)
[2020-02-25] VITALS: BP 137/75
[2020-02-25] MEDS: ACCU-CHEK COMFORT CURVE STRIP VI SCH ×4 (00:01→17:39)
[2020-02-25] MEDS: InsuLIN REG 1unit/0.01ml Soln (100units/ml) SC SCH ×4 (00:02→17:43)
[2020-02-25] MEDS: guaiFENesin-DM 100/10mg/5ml SYR PO PRN ×2 (01:53→17:39)
[2020-02-25] MEDS: LEVOTHYROXINE SODIUM 25 MCG TAB PO SCH (06:33)
[2020-02-25] MEDS: BUDESONIDE (INHALATION) 180 MCG IH IN SCH ×3 (06:43→22:00)
[2020-02-25] MEDS: ALBUTEROL SULF HFA 90MCG INH 200DOSE IN PRN (06:43)
[2020-02-25 07:09] LABS: Potassium 4.2 mmol/L (3.5-5.1)
[2020-02-25 07:42] LABS: Albumin 2.7 g/dL (3.4-5.0); BUN/Creatinine Ratio 29.5; Bilirubin, Total 0.8 mg/dL (0.2-1.0); Magnesium 2.5 mg/dL (1.6-2.6); Phosphorus 4.4 mg/dL (2.5-4.90); Total Protein 7.8 g/dL (6.4-8.2)
[2020-02-25 09:00] VITALS: BP 112/69
[2020-02-25] MEDS: DexAMETHasone SOD PHOS 10MG/1ML VIAL INJ IV SCH (09:14)
[2020-02-25] MEDS: ZINC SULFATE 220mg CAP or TAB PO SCH (09:14)
[2020-02-25] MEDS: cefTRIAXone 1GM/50ML D5W 50 ML IV SCH (09:14)
[2020-02-25] MEDS: FAMOTIDINE 20 MG TAB PO SCH (09:15)
[2020-02-25] MEDS: ENOXAPARIN SOD 40 MG/0.4 ML SYRINGE SC SCH ×2 (09:15→21:36)
[2020-02-25] MEDS: ASCORBIC ACID 1,000 MG TAB PO SCH (09:15)
[2020-02-25] MEDS: CHOLECALCIFEROL (VITD3) 2,000 UNIT CAP PO SCH (09:15)
[2020-02-25 16:00] VITALS: BP 121/77
[2020-02-25] MEDS ORDERED: FUROSEMIDE 20 MG/2 ML VIAL IV ONE (17:00)
[2020-02-25] MEDS: AMINO ACID INFUSION IN D10W 1,000 ML IV NR (19:49)
[2020-02-26] VITALS: BP 108/64
[2020-02-26] MEDS: ACCU-CHEK COMFORT CURVE STRIP VI SCH ×4 (00:18→18:40)
[2020-02-26 06:31] LABS: Basophils # (auto) 0 10 ^3/uL (0-0.2); Basophils % (auto) 0.1 % (0.0-2.0); Eosinophils # (auto) 0.3 10 ^3/uL (0-0.8); Hematocrit 47.1 % (36.0-46.0); Lymphocytes # (auto) 0.4 10 ^3/uL (0.4-5.4); Lymphocytes % (auto) 4.9 % (10.0-50.0); Mean Corpuscular Hemoglobin 28.7 pg (28.0-32.0); Mean Corpuscular Volume 84.5 fL (80.0-100.0); Monocytes # (auto) 0.4 10 ^3/uL (0-1.3); Nucleated Red Blood Cells % 0.4 %; Platelet Count (auto) 227 10^3/uL (140-450); Potassium 3.8 mmol/L (3.5-5.1); Red Blood Cells 5.58 10^6/uL (4.0-5.20); Red Cell Distribution Width 15.6 % (11.8-14.3); White Blood Cell 9.1 10^3/uL (4.4-10.8)
[2020-02-26] MEDS: InsuLIN REG 1unit/0.01ml Soln (100units/ml) SC SCH ×4 (06:42→18:41)
[2020-02-26] MEDS: LEVOTHYROXINE SODIUM 25 MCG TAB PO SCH (06:43)
[2020-02-26 07:02] LABS: Albumin 2.8 g/dL (3.4-5.0); Bilirubin, Total 0.7 mg/dL (0.2-1.0); Calcium 9.1 mg/dL (8.5-10.1); Magnesium 2.3 mg/dL (1.6-2.6); Total Protein 8.1 g/dL (6.4-8.2)
[2020-02-26 07:49] LABS: CRP High Sensitivity 4.05 mg/dL (< 0.3)
[2020-02-26 08:00] VITALS: BP 118/74
[2020-02-26] MEDS: DexAMETHasone SOD PHOS 10MG/1ML VIAL INJ IV SCH (10:12)
[2020-02-26] MEDS: FUROSEMIDE 20 MG/2 ML VIAL IV SCH (10:12)
[2020-02-26] MEDS: ZINC SULFATE 220mg CAP or TAB PO SCH (10:12)
[2020-02-26] MEDS: ENOXAPARIN SOD 40 MG/0.4 ML SYRINGE SC SCH ×2 (10:13→21:37)
[2020-02-26] MEDS: BUDESONIDE (INHALATION) 180 MCG IH IN SCH (10:13)
[2020-02-26] MEDS: ASCORBIC ACID 1,000 MG TAB PO SCH (10:13)
[2020-02-26] MEDS: CHOLECALCIFEROL (VITD3) 2,000 UNIT CAP PO SCH (10:13)
[2020-02-26] MEDS: FAMOTIDINE 20 MG TAB PO SCH (10:13)
[2020-02-26] MEDS: cefTRIAXone 1GM/50ML D5W 50 ML IV SCH (10:14)
[2020-02-26] MEDS ORDERED: POLYETHYLENE GLYCOL 17 GM PWDR PO ONE (11:30)
[2020-02-26 16:00] VITALS: BP 129/72
[2020-02-26 20:00] VITALS: BP 123/72
[2020-02-26 22:00] VITALS: BP 123/72
[2020-02-27] MEDS: ACCU-CHEK COMFORT CURVE STRIP VI SCH ×5 (00:36→23:44)
[2020-02-27] MEDS: InsuLIN REG 1unit/0.01ml Soln (100units/ml) SC SCH ×5 (00:36→23:46)
[2020-02-27] MEDS: LEVOTHYROXINE SODIUM 25 MCG TAB PO SCH (06:37)
[2020-02-27 09:00] VITALS: BP 126/74
[2020-02-27] MEDS: DexAMETHasone SOD PHOS 10MG/1ML VIAL INJ IV SCH (09:42)
[2020-02-27] MEDS: cefTRIAXone 1GM/50ML D5W 50 ML IV SCH (09:42)
[2020-02-27] MEDS: ZINC SULFATE 220mg CAP or TAB PO SCH (09:42)
[2020-02-27] MEDS: BUDESONIDE (INHALATION) 180 MCG IH IN SCH ×2 (09:42→19:40)
[2020-02-27] MEDS: CHOLECALCIFEROL (VITD3) 2,000 UNIT CAP PO SCH (09:43)
[2020-02-27] MEDS: ENOXAPARIN SOD 40 MG/0.4 ML SYRINGE SC SCH ×2 (09:43→21:27)
[2020-02-27] MEDS: ASCORBIC ACID 1,000 MG TAB PO SCH (09:43)
[2020-02-27] MEDS: FAMOTIDINE 20 MG TAB PO SCH (09:43)
[2020-02-27] MEDS: guaiFENesin-DM 100/10mg/5ml SYR PO PRN ×3 (09:44→22:31)
[2020-02-27] MEDS: FUROSEMIDE 20 MG/2 ML VIAL IV SCH (09:51)
[2020-02-27 16:00] VITALS: BP 140/76
[2020-02-28] VITALS: BP 106/66
[2020-02-28] MEDS: InsuLIN REG 1unit/0.01ml Soln (100units/ml) SC SCH ×4 (06:00→23:26)
[2020-02-28] MEDS: LEVOTHYROXINE SODIUM 25 MCG TAB PO SCH (06:25)
[2020-02-28] MEDS: ACCU-CHEK COMFORT CURVE STRIP VI SCH ×4 (06:25→23:25)
[2020-02-28] MEDS: BUDESONIDE (INHALATION) 180 MCG IH IN SCH ×2 (07:20→19:25)
[2020-02-28] MEDS: ALBUTEROL SULF HFA 90MCG INH 200DOSE IN PRN ×2 (07:21→19:25)
[2020-02-28 08:00] VITALS: BP 113/59
[2020-02-28] MEDS: ENOXAPARIN SOD 40 MG/0.4 ML SYRINGE SC SCH ×2 (10:34→21:37)
[2020-02-28] MEDS: cefTRIAXone 1GM/50ML D5W 50 ML IV SCH (10:34)
[2020-02-28] MEDS: CHOLECALCIFEROL (VITD3) 2,000 UNIT CAP PO SCH (10:35)
[2020-02-28] MEDS: FUROSEMIDE 20 MG/2 ML VIAL IV SCH (10:35)
[2020-02-28] MEDS: FAMOTIDINE 20 MG TAB PO SCH (10:35)
[2020-02-28] MEDS: DexAMETHasone SOD PHOS 10MG/1ML VIAL INJ IV SCH (10:35)
[2020-02-28] MEDS: ZINC SULFATE 220mg CAP or TAB PO SCH (10:35)
[2020-02-28] MEDS: ASCORBIC ACID 1,000 MG TAB PO SCH (10:36)
[2020-02-28 16:00] VITALS: BP 117/63
[2020-02-28] MEDS: guaiFENesin-DM 100/10mg/5ml SYR PO PRN (19:40)
[2020-02-29] VITALS: BP 131/79
[2020-02-29] MEDS: ACCU-CHEK COMFORT CURVE STRIP VI SCH ×4 (05:51→23:37)
[2020-02-29] MEDS: InsuLIN REG 1unit/0.01ml Soln (100units/ml) SC SCH ×4 (05:51→23:40)
[2020-02-29] MEDS: LEVOTHYROXINE SODIUM 25 MCG TAB PO SCH (06:22)
[2020-02-29 09:00] VITALS: BP 118/68
[2020-02-29] MEDS: ALBUTEROL SULF HFA 90MCG INH 200DOSE IN PRN ×2 (09:58→20:30)
[2020-02-29] MEDS: BUDESONIDE (INHALATION) 180 MCG IH IN SCH ×2 (09:59→18:41)
[2020-02-29] MEDS: guaiFENesin-DM 100/10mg/5ml SYR PO PRN ×2 (10:17→22:08)
[2020-02-29] MEDS: DexAMETHasone SOD PHOS 10MG/1ML VIAL INJ IV SCH (10:17)
[2020-02-29] MEDS: FUROSEMIDE 20 MG/2 ML VIAL IV SCH (10:17)
[2020-02-29] MEDS: CHOLECALCIFEROL (VITD3) 2,000 UNIT CAP PO SCH (10:18)
[2020-02-29] MEDS: cefTRIAXone 1GM/50ML D5W 50 ML IV SCH (10:18)
[2020-02-29] MEDS: ENOXAPARIN SOD 40 MG/0.4 ML SYRINGE SC SCH ×2 (10:18→21:32)
[2020-02-29] MEDS: ZINC SULFATE 220mg CAP or TAB PO SCH (10:18)
[2020-02-29] MEDS: ASCORBIC ACID 1,000 MG TAB PO SCH (10:18)
[2020-02-29] MEDS: FAMOTIDINE 20 MG TAB PO SCH (10:18)
[2020-02-29 17:00] VITALS: BP 123/73
[2020-03-01 00:10] VITALS: BP 112/72
[2020-03-01] MEDS: InsuLIN REG 1unit/0.01ml Soln (100units/ml) SC SCH ×4 (05:29→23:51)
[2020-03-01] MEDS: ACCU-CHEK COMFORT CURVE STRIP VI SCH ×4 (05:31→23:47)
[2020-03-01] MEDS: LEVOTHYROXINE SODIUM 25 MCG TAB PO SCH (05:31)
[2020-03-01] MEDS: BUDESONIDE (INHALATION) 180 MCG IH IN SCH (06:39)
[2020-03-01 07:18] LABS: Hematocrit 48.2 % (36.0-46.0); Hemoglobin 15.6 g/dL (12.2-16.2); Mean Corpuscular Hemoglobin 27.2 pg (28.0-32.0); Mean Corpuscular Hgb Conc. 32.4 g/dL (32.0-36.0); Mean Corpuscular Volume 84.1 fL (80.0-100.0); Platelet Count (auto) 276 10^3/uL (140-450); Red Blood Cells 5.73 10^6/uL (4.0-5.20); Red Cell Distribution Width 15.5 % (11.8-14.3)
[2020-03-01 07:26] LABS: Band Neutrophils % (manual) 0; Basophils % (manual) 0 (0.0-2.0); Blast Cells 0; Metamyelocytes % 0; Myelocytes % 0; Promyelocytes % 0; Reactive Lymphocytes 0
[2020-03-01] MEDS: ALBUTEROL SULF HFA 90MCG INH 200DOSE IN PRN (07:51)
[2020-03-01 08:00] VITALS: BP 118/70
[2020-03-01 08:20] LABS: Eosinophils % (manual) 1 (0-7); Lymphocytes % (manual) 3 (10.0-50.0); Monocytes % (manual) 1 (0-12)
[2020-03-01 08:43] LABS: Potassium 4.3 mmol/L (3.5-5.1)
[2020-03-01] MEDS: DexAMETHasone SOD PHOS 10MG/1ML VIAL INJ IV SCH (10:25)
[2020-03-01] MEDS: FUROSEMIDE 20 MG/2 ML VIAL IV SCH (10:26)
[2020-03-01] MEDS: ZINC SULFATE 220mg CAP or TAB PO SCH (10:26)
[2020-03-01] MEDS: CHOLECALCIFEROL (VITD3) 2,000 UNIT CAP PO SCH (10:27)
[2020-03-01] MEDS: FAMOTIDINE 20 MG TAB PO SCH (10:27)
[2020-03-01] MEDS: ASCORBIC ACID 1,000 MG TAB PO SCH (10:27)
[2020-03-01] MEDS: ENOXAPARIN SOD 40 MG/0.4 ML SYRINGE SC SCH ×2 (10:27→20:36)
[2020-03-01] MEDS: guaiFENesin-DM 100/10mg/5ml SYR PO PRN ×2 (10:36→20:36)
[2020-03-01 13:58] LABS: Albumin 2.7 g/dL (3.4-5.0); Bilirubin, Total 0.7 mg/dL (0.2-1.0); Calcium 9.3 mg/dL (8.5-10.1); Total Protein 7.6 g/dL (6.4-8.2)
[2020-03-01 13:59] LABS: CRP High Sensitivity 4.99 mg/dL (< 0.3)
[2020-03-01] MEDS ORDERED: SODIUM CHL 3% 500 ML BAG IN ONE (14:15)
[2020-03-01 16:00] VITALS: BP 120/74
[2020-03-02] VITALS: BP 102/73
[2020-03-02] MEDS: InsuLIN REG 1unit/0.01ml Soln (100units/ml) SC SCH ×3 (05:46→17:01)
[2020-03-02] MEDS: ACCU-CHEK COMFORT CURVE STRIP VI SCH ×4 (05:47→23:45)
[2020-03-02] MEDS: LEVOTHYROXINE SODIUM 25 MCG TAB PO SCH (05:47)
[2020-03-02] MEDS: BUDESONIDE (INHALATION) 180 MCG IH IN SCH ×2 (06:26→21:31)
[2020-03-02] MEDS: ALBUTEROL SULF HFA 90MCG INH 200DOSE IN PRN ×2 (07:15→21:10)
[2020-03-02 08:00] VITALS: BP 122/67
[2020-03-02] MEDS: DexAMETHasone SOD PHOS 10MG/1ML VIAL INJ IV SCH (10:12)
[2020-03-02] MEDS: ZINC SULFATE 220mg CAP or TAB PO SCH (10:13)
[2020-03-02] MEDS: FUROSEMIDE 20 MG/2 ML VIAL IV SCH (10:13)
[2020-03-02] MEDS: ASCORBIC ACID 1,000 MG TAB PO SCH (10:14)
[2020-03-02] MEDS: FAMOTIDINE 20 MG TAB PO SCH (10:14)
[2020-03-02] MEDS: CHOLECALCIFEROL (VITD3) 2,000 UNIT CAP PO SCH (10:14)
[2020-03-02] MEDS: ENOXAPARIN SOD 40 MG/0.4 ML SYRINGE SC SCH ×2 (10:14→21:21)
[2020-03-02 10:56] LABS: Basophils # (auto) 0.1 10 ^3/uL (0-0.2); Basophils % (auto) 0.4 % (0.0-2.0); Eosinophils # (auto) 0.5 10 ^3/uL (0-0.8); Eosinophils % (auto) 4.3 % (0.0-7.0); Hematocrit 43.3 % (36.0-46.0); Hemoglobin 14.4 g/dL (12.2-16.2); Lymphocytes # (auto) 0.6 10 ^3/uL (0.4-5.4); Mean Corpuscular Hemoglobin 28.1 pg (28.0-32.0); Mean Corpuscular Hgb Conc. 33.2 g/dL (32.0-36.0); Mean Corpuscular Volume 84.6 fL (80.0-100.0); Monocytes # (auto) 0.5 10 ^3/uL (0-1.3); Monocytes % (auto) 3.7 % (0.0-12.0); Neutrophils # (auto) 10.9 10 ^3/uL (1.6-8.6); Neutrophils % (auto) 86.6 % (37.0-80.0); Nucleated Red Blood Cells % 0.1 %; Platelet Count (auto) 277 10^3/uL (140-450); Red Blood Cells 5.12 10^6/uL (4.0-5.20); Red Cell Distribution Width 15.6 % (11.8-14.3); White Blood Cell 12.6 10^3/uL (4.4-10.8)
[2020-03-02 16:00] VITALS: BP 127/77
[2020-03-02] MEDS: guaiFENesin-DM 100/10mg/5ml SYR PO PRN (17:30)
[2020-03-03] VITALS: BP 121/78
[2020-03-03] MEDS: InsuLIN REG 1unit/0.01ml Soln (100units/ml) SC SCH ×4 (06:00→17:04)
[2020-03-03] MEDS: ACCU-CHEK COMFORT CURVE STRIP VI SCH ×3 (06:35→17:04)
[2020-03-03] MEDS: LEVOTHYROXINE SODIUM 25 MCG TAB PO SCH (06:36)
[2020-03-03 08:00] VITALS: BP 99/65
[2020-03-03] MEDS: DexAMETHasone SOD PHOS 10MG/1ML VIAL INJ IV SCH (11:25)
[2020-03-03] MEDS: FUROSEMIDE 20 MG/2 ML VIAL IV SCH (11:26)
[2020-03-03] MEDS: ASCORBIC ACID 1,000 MG TAB PO SCH (11:26)
[2020-03-03] MEDS: ZINC SULFATE 220mg CAP or TAB PO SCH (11:26)
[2020-03-03] MEDS: CHOLECALCIFEROL (VITD3) 2,000 UNIT CAP PO SCH (11:26)
[2020-03-03] MEDS: FAMOTIDINE 20 MG TAB PO SCH (11:26)
[2020-03-03] MEDS: ENOXAPARIN SOD 40 MG/0.4 ML SYRINGE SC SCH ×2 (11:27→22:24)
[2020-03-03] MEDS: BUDESONIDE (INHALATION) 180 MCG IH IN SCH ×2 (14:04→18:58)
[2020-03-03] MEDS ORDERED: PIPERACILLIN-TAZO 4.5GM 100 ML IV ONE (15:15)
[2020-03-03 16:15] VITALS: BP 125/65
[2020-03-03] MEDS: ALBUTEROL SULF HFA 90MCG INH 200DOSE IN PRN (18:58)
[2020-03-03] MEDS: PIPERACILLIN-TAZOB 3.375GM 100 ML IV SCH (22:23)
[2020-03-03] MEDS: guaiFENesin-DM 100/10mg/5ml SYR PO PRN (22:24)
[2020-03-04] VITALS: BP 113/73
[2020-03-04] MEDS: ACCU-CHEK COMFORT CURVE STRIP VI SCH ×5 (05:21→23:30)
[2020-03-04] MEDS: InsuLIN REG 1unit/0.01ml Soln (100units/ml) SC SCH ×5 (05:21→23:30)
[2020-03-04 05:46] LABS: Basophils # (auto) 0 10 ^3/uL (0-0.2); Basophils % (auto) 0.4 % (0.0-2.0); Eosinophils # (auto) 0.4 10 ^3/uL (0-0.8); Eosinophils % (auto) 4.1 % (0.0-7.0); Hematocrit 40.6 % (36.0-46.0); Lymphocytes # (auto) 0.6 10 ^3/uL (0.4-5.4); Lymphocytes % (auto) 6.7 % (10.0-50.0); Mean Corpuscular Hemoglobin 29.4 pg (28.0-32.0); Mean Corpuscular Hgb Conc. 34.6 g/dL (32.0-36.0); Monocytes # (auto) 0.3 10 ^3/uL (0-1.3); Monocytes % (auto) 3.8 % (0.0-12.0); Neutrophils # (auto) 7.4 10 ^3/uL (1.6-8.6); Nucleated Red Blood Cells % 0.1 %; Platelet Count (auto) 262 10^3/uL (140-450); Red Blood Cells 4.77 10^6/uL (4.0-5.20); Red Cell Distribution Width 15.8 % (11.8-14.3); White Blood Cell 8.7 10^3/uL (4.4-10.8)
[2020-03-04 05:55] LABS: Potassium 3.7 mmol/L (3.5-5.1)
[2020-03-04] MEDS: PIPERACILLIN-TAZOB 3.375GM 100 ML IV SCH ×3 (06:00→21:39)
[2020-03-04 06:03] LABS: Albumin 2.7 g/dL (3.4-5.0); BUN/Creatinine Ratio 27.9; Bilirubin, Total 0.6 mg/dL (0.2-1.0); Calcium 8.5 mg/dL (8.5-10.1); Total Protein 7.2 g/dL (6.4-8.2)
[2020-03-04] MEDS: LEVOTHYROXINE SODIUM 25 MCG TAB PO SCH (07:22)
[2020-03-04 08:00] VITALS: BP 100/63
[2020-03-04] MEDS: FAMOTIDINE 20 MG TAB PO SCH (10:21)
[2020-03-04] MEDS: ASCORBIC ACID 1,000 MG TAB PO SCH (10:21)
[2020-03-04] MEDS: BUDESONIDE (INHALATION) 180 MCG IH IN SCH ×3 (10:21→19:11)
[2020-03-04] MEDS: ZINC SULFATE 220mg CAP or TAB PO SCH (10:21)
[2020-03-04] MEDS: CHOLECALCIFEROL (VITD3) 2,000 UNIT CAP PO SCH (10:21)
[2020-03-04] MEDS: FUROSEMIDE 20 MG/2 ML VIAL IV SCH (10:21)
[2020-03-04] MEDS: ENOXAPARIN SOD 40 MG/0.4 ML SYRINGE SC SCH ×2 (10:22→21:39)
[2020-03-04] MEDS: ALBUTEROL SULF HFA 90MCG INH 200DOSE IN PRN ×2 (11:10→19:11)
[2020-03-04 16:00] VITALS: BP 113/60
[2020-03-04] MEDS: ERGOCALCIFEROL 50,000 UNIT(1.25MG) CAP PO SCH (16:54)
[2020-03-04] MEDS: guaiFENesin-DM 100/10mg/5ml SYR PO PRN (20:18)
[2020-03-05] VITALS: BP 104/64
[2020-03-05] MEDS: ACCU-CHEK COMFORT CURVE STRIP VI SCH ×3 (05:53→17:00)
[2020-03-05] MEDS: InsuLIN REG 1unit/0.01ml Soln (100units/ml) SC SCH ×3 (05:54→17:00)
[2020-03-05] MEDS: PIPERACILLIN-TAZOB 3.375GM 100 ML IV SCH ×3 (06:00→22:25)
[2020-03-05] MEDS: LEVOTHYROXINE SODIUM 25 MCG TAB PO SCH (06:00)
[2020-03-05 08:00] VITALS: BP 104/60
[2020-03-05] MEDS: FUROSEMIDE 20 MG/2 ML VIAL IV SCH (09:53)
[2020-03-05] MEDS: ZINC SULFATE 220mg CAP or TAB PO SCH (09:54)
[2020-03-05] MEDS: FAMOTIDINE 20 MG TAB PO SCH (09:54)
[2020-03-05] MEDS: CHOLECALCIFEROL (VITD3) 2,000 UNIT CAP PO SCH (09:55)
[2020-03-05] MEDS: ENOXAPARIN SOD 40 MG/0.4 ML SYRINGE SC SCH ×2 (09:55→22:25)
[2020-03-05] MEDS: ASCORBIC ACID 1,000 MG TAB PO SCH (09:55)
[2020-03-05] MEDS: DexAMETHasone SOD PHOS 10MG/1ML VIAL INJ IV SCH (11:15)
[2020-03-05] MEDS: BUDESONIDE (INHALATION) 180 MCG IH IN SCH ×3 (11:15→19:43)
[2020-03-05] MEDS: LINEZOLID 600MG TABLET PO SCH ×2 (14:32→22:00)
[2020-03-05 16:00] VITALS: BP 142/98
[2020-03-05] MEDS: guaiFENesin-DM 100/10mg/5ml SYR PO PRN (19:40)
[2020-03-06] VITALS: BP 117/74
[2020-03-06] MEDS: ACCU-CHEK COMFORT CURVE STRIP VI SCH ×4 (00:11→17:08)
[2020-03-06] MEDS: InsuLIN REG 1unit/0.01ml Soln (100units/ml) SC SCH ×4 (05:46→17:09)
[2020-03-06] MEDS: PIPERACILLIN-TAZOB 3.375GM 100 ML IV SCH ×3 (05:46→22:05)
[2020-03-06] MEDS: LEVOTHYROXINE SODIUM 25 MCG TAB PO SCH (06:12)
[2020-03-06 08:00] VITALS: BP 126/81
[2020-03-06] MEDS: ALBUTEROL SULF HFA 90MCG INH 200DOSE IN PRN ×3 (08:49→19:06)
[2020-03-06] MEDS: DexAMETHasone SOD PHOS 10MG/1ML VIAL INJ IV SCH (10:47)
[2020-03-06] MEDS: FUROSEMIDE 20 MG/2 ML VIAL IV SCH (10:48)
[2020-03-06] MEDS: ZINC SULFATE 220mg CAP or TAB PO SCH (10:48)
[2020-03-06] MEDS: FAMOTIDINE 20 MG TAB PO SCH (10:48)
[2020-03-06] MEDS: ASCORBIC ACID 1,000 MG TAB PO SCH (10:48)
[2020-03-06] MEDS: ENOXAPARIN SOD 40 MG/0.4 ML SYRINGE SC SCH ×2 (10:49→22:05)
[2020-03-06] MEDS: CHOLECALCIFEROL (VITD3) 2,000 UNIT CAP PO SCH (10:49)
[2020-03-06] MEDS: LINEZOLID 600MG TABLET PO SCH ×2 (11:21→22:05)
[2020-03-06 16:00] VITALS: BP 122/78
[2020-03-06] MEDS: BUDESONIDE (INHALATION) 180 MCG IH IN SCH (19:06)
[2020-03-06] MEDS: guaiFENesin-DM 100/10mg/5ml SYR PO PRN (22:12)
[2020-03-07] VITALS: BP 106/89
[2020-03-07] MEDS: ACCU-CHEK COMFORT CURVE STRIP VI SCH ×5 (00:21→23:45)
[2020-03-07] MEDS: InsuLIN REG 1unit/0.01ml Soln (100units/ml) SC SCH ×5 (00:29→23:46)
[2020-03-07] MEDS: PIPERACILLIN-TAZOB 3.375GM 100 ML IV SCH ×3 (06:05→21:15)
[2020-03-07] MEDS: LEVOTHYROXINE SODIUM 25 MCG TAB PO SCH (06:06)
[2020-03-07] MEDS: BUDESONIDE (INHALATION) 180 MCG IH IN SCH ×2 (06:32→22:00)
[2020-03-07] MEDS: ALBUTEROL SULF HFA 90MCG INH 200DOSE IN PRN (06:33)
[2020-03-07 08:20] VITALS: BP 100/58
[2020-03-07] MEDS: CHOLECALCIFEROL (VITD3) 2,000 UNIT CAP PO SCH (10:00)
[2020-03-07] MEDS: ENOXAPARIN SOD 40 MG/0.4 ML SYRINGE SC SCH ×2 (10:00→21:15)
[2020-03-07] MEDS: DexAMETHasone SOD PHOS 10MG/1ML VIAL INJ IV SCH (10:32)
[2020-03-07] MEDS: ZINC SULFATE 220mg CAP or TAB PO SCH (10:32)
[2020-03-07] MEDS: FAMOTIDINE 20 MG TAB PO SCH (10:35)
[2020-03-07] MEDS: ASCORBIC ACID 1,000 MG TAB PO SCH (10:38)
[2020-03-07] MEDS: LINEZOLID 600MG TABLET PO SCH ×2 (10:39→21:15)
[2020-03-07] MEDS: FUROSEMIDE 20 MG/2 ML VIAL IV SCH (10:40)
[2020-03-07] MEDS: guaiFENesin-DM 100/10mg/5ml SYR PO PRN (15:23)
[2020-03-07 17:14] VITALS: BP 108/70
[2020-03-08] VITALS: BP 116/64
[2020-03-08] MEDS: guaiFENesin-DM 100/10mg/5ml SYR PO PRN ×2 (04:33→21:29)
[2020-03-08] MEDS: PIPERACILLIN-TAZOB 3.375GM 100 ML IV SCH ×3 (05:31→21:12)
[2020-03-08] MEDS: ACCU-CHEK COMFORT CURVE STRIP VI SCH ×3 (05:55→17:50)
[2020-03-08] MEDS: InsuLIN REG 1unit/0.01ml Soln (100units/ml) SC SCH ×3 (05:56→17:49)
[2020-03-08] MEDS: LEVOTHYROXINE SODIUM 25 MCG TAB PO SCH (06:11)
[2020-03-08 08:00] VITALS: BP 108/72
[2020-03-08] MEDS: ZINC SULFATE 220mg CAP or TAB PO SCH (11:13)
[2020-03-08] MEDS: DexAMETHasone SOD PHOS 10MG/1ML VIAL INJ IV SCH (11:13)
[2020-03-08] MEDS: FAMOTIDINE 20 MG TAB PO SCH (11:13)
[2020-03-08] MEDS: LINEZOLID 600MG TABLET PO SCH ×2 (11:14→21:12)
[2020-03-08] MEDS: ENOXAPARIN SOD 40 MG/0.4 ML SYRINGE SC SCH ×2 (11:14→21:12)
[2020-03-08] MEDS: CHOLECALCIFEROL (VITD3) 2,000 UNIT CAP PO SCH (11:14)
[2020-03-08] MEDS: ASCORBIC ACID 1,000 MG TAB PO SCH (11:14)
[2020-03-08] MEDS: FUROSEMIDE 20 MG/2 ML VIAL IV SCH (11:27)
[2020-03-08] MEDS: ALBUTEROL SULF HFA 90MCG INH 200DOSE IN PRN ×2 (11:45→19:23)
[2020-03-08] MEDS: BUDESONIDE (INHALATION) 180 MCG IH IN SCH ×3 (11:45→22:00)
[2020-03-08 15:52] VITALS: BP 112/63
[2020-03-09] VITALS: BP 115/84
[2020-03-09] MEDS: ACCU-CHEK COMFORT CURVE STRIP VI SCH ×4 (00:22→17:46)
[2020-03-09] MEDS: InsuLIN REG 1unit/0.01ml Soln (100units/ml) SC SCH ×4 (00:23→17:46)
[2020-03-09] MEDS: PIPERACILLIN-TAZOB 3.375GM 100 ML IV SCH ×3 (05:58→21:46)
[2020-03-09] MEDS: LEVOTHYROXINE SODIUM 25 MCG TAB PO SCH (06:15)
[2020-03-09] MEDS: ALBUTEROL SULF HFA 90MCG INH 200DOSE IN PRN ×2 (07:35→20:07)
[2020-03-09] MEDS: BUDESONIDE (INHALATION) 180 MCG IH IN SCH ×2 (07:35→20:07)
[2020-03-09 08:00] VITALS: BP 106/45
[2020-03-09] MEDS: ZINC SULFATE 220mg CAP or TAB PO SCH (09:02)
[2020-03-09] MEDS: DexAMETHasone SOD PHOS 10MG/1ML VIAL INJ IV SCH (09:02)
[2020-03-09] MEDS: LINEZOLID 600MG TABLET PO SCH ×2 (09:02→21:45)
[2020-03-09] MEDS: ENOXAPARIN SOD 40 MG/0.4 ML SYRINGE SC SCH ×2 (09:02→21:46)
[2020-03-09] MEDS: FAMOTIDINE 20 MG TAB PO SCH (09:02)
[2020-03-09] MEDS: ASCORBIC ACID 1,000 MG TAB PO SCH (09:02)
[2020-03-09] MEDS: guaiFENesin-DM 100/10mg/5ml SYR PO PRN ×2 (09:02→22:01)
[2020-03-09] MEDS: CHOLECALCIFEROL (VITD3) 2,000 UNIT CAP PO SCH (09:03)
[2020-03-09] MEDS: FUROSEMIDE 20 MG/2 ML VIAL IV SCH (09:06)
[2020-03-09 16:00] VITALS: BP 105/60
[2020-03-10] MEDS: ACCU-CHEK COMFORT CURVE STRIP VI SCH ×5 (00:27→23:57)
[2020-03-10] MEDS: InsuLIN REG 1unit/0.01ml Soln (100units/ml) SC SCH ×4 (00:28→18:18)
[2020-03-10 00:39] VITALS: BP 93/49
[2020-03-10] MEDS: PIPERACILLIN-TAZOB 3.375GM 100 ML IV SCH ×3 (06:30→22:21)
[2020-03-10] MEDS: guaiFENesin-DM 100/10mg/5ml SYR PO PRN ×2 (06:31→20:46)
[2020-03-10] MEDS: LEVOTHYROXINE SODIUM 25 MCG TAB PO SCH (06:31)
[2020-03-10] MEDS: ALBUTEROL SULF HFA 90MCG INH 200DOSE IN PRN ×2 (07:05→19:57)
[2020-03-10] MEDS: BUDESONIDE (INHALATION) 180 MCG IH IN SCH ×2 (07:05→19:57)
[2020-03-10 08:00] VITALS: BP 100/64
[2020-03-10] MEDS: LINEZOLID 600MG TABLET PO SCH ×2 (09:46→22:21)
[2020-03-10] MEDS: ASCORBIC ACID 1,000 MG TAB PO SCH (09:46)
[2020-03-10] MEDS: ZINC SULFATE 220mg CAP or TAB PO SCH (09:47)
[2020-03-10] MEDS: DexAMETHasone SOD PHOS 10MG/1ML VIAL INJ IV SCH (09:47)
[2020-03-10] MEDS: FUROSEMIDE 20 MG/2 ML VIAL IV SCH (09:47)
[2020-03-10] MEDS: CHOLECALCIFEROL (VITD3) 2,000 UNIT CAP PO SCH (09:47)
[2020-03-10] MEDS: FAMOTIDINE 20 MG TAB PO SCH (09:48)
[2020-03-10] MEDS: ENOXAPARIN SOD 40 MG/0.4 ML SYRINGE SC SCH (11:55)
[2020-03-10 15:47] VITALS: BP 107/59
[2020-03-10] MEDS: ENOXAPARIN SOD 120 MG/0.8 ML SYRINGE SC SCH (22:20)
[2020-03-10] MEDS: FLORASTOR (S. BOULARDII) 250 MG CAP PO SCH (22:21)
[2020-03-11] MEDS: InsuLIN REG 1unit/0.01ml Soln (100units/ml) SC SCH ×4 (00:02→17:40)
[2020-03-11 00:33] VITALS: BP 102/75
[2020-03-11] MEDS: PIPERACILLIN-TAZOB 3.375GM 100 ML IV SCH ×3 (05:50→21:49)
[2020-03-11] MEDS: ACCU-CHEK COMFORT CURVE STRIP VI SCH ×3 (06:00→17:41)
[2020-03-11] MEDS: LEVOTHYROXINE SODIUM 25 MCG TAB PO SCH (06:48)
[2020-03-11 08:00] VITALS: BP 118/71
[2020-03-11] MEDS ORDERED: FUROSEMIDE 40 MG/4 ML VIAL ONE (09:11)
[2020-03-11] MEDS: FAMOTIDINE 20 MG TAB PO SCH (09:15)
[2020-03-11] MEDS: ASCORBIC ACID 1,000 MG TAB PO SCH (09:16)
[2020-03-11] MEDS: FLORASTOR (S. BOULARDII) 250 MG CAP PO SCH ×2 (09:16→21:48)
[2020-03-11] MEDS: DexAMETHasone SOD PHOS 10MG/1ML VIAL INJ IV SCH (09:16)
[2020-03-11] MEDS: ZINC SULFATE 220mg CAP or TAB PO SCH (09:16)
[2020-03-11] MEDS: ENOXAPARIN SOD 120 MG/0.8 ML SYRINGE SC SCH ×2 (09:16→21:48)
[2020-03-11] MEDS: CHOLECALCIFEROL (VITD3) 2,000 UNIT CAP PO SCH (09:16)
[2020-03-11] MEDS: FUROSEMIDE 20 MG/2 ML VIAL IV SCH ×2 (09:17→09:19)
[2020-03-11] MEDS: LINEZOLID 600MG TABLET PO SCH ×2 (09:17→21:48)
[2020-03-11] MEDS: ERGOCALCIFEROL 50,000 UNIT(1.25MG) CAP PO SCH (14:52)
[2020-03-11 16:00] VITALS: BP 103/65
[2020-03-11] MEDS: guaiFENesin-DM 100/10mg/5ml SYR PO PRN (20:34)
[2020-03-11] MEDS: ALBUTEROL SULF HFA 90MCG INH 200DOSE IN PRN (22:10)
[2020-03-11] MEDS: BUDESONIDE (INHALATION) 180 MCG IH IN SCH (22:10)
[2020-03-12] VITALS: BP_SYST 102; BP_SYST 160; BP_DIAS 66; BP_DIAS 86
[2020-03-12] MEDS: InsuLIN REG 1unit/0.01ml Soln (100units/ml) SC SCH ×4 (00:56→18:00)
[2020-03-12] MEDS: PIPERACILLIN-TAZOB 3.375GM 100 ML IV SCH ×2 (05:33→13:52)
[2020-03-12] MEDS: ACCU-CHEK COMFORT CURVE STRIP VI SCH ×4 (05:54→18:00)
[2020-03-12] MEDS: LEVOTHYROXINE SODIUM 25 MCG TAB PO SCH (07:06)
[2020-03-12 08:00] VITALS: BP 114/64
[2020-03-12] MEDS: ALBUTEROL SULF HFA 90MCG INH 200DOSE IN PRN ×2 (08:11→20:16)
[2020-03-12] MEDS: BUDESONIDE (INHALATION) 180 MCG IH IN SCH ×2 (08:11→20:16)
[2020-03-12 08:24] LABS: Basophils # (auto) 0.1 10 ^3/uL (0-0.2); Basophils % (auto) 0.8 % (0.0-2.0); Eosinophils # (auto) 0.3 10 ^3/uL (0-0.8); Eosinophils % (auto) 3.1 % (0.0-7.0); Hematocrit 42.5 % (36.0-46.0); Hemoglobin 14.3 g/dL (12.2-16.2); Lymphocytes % (auto) 12.4 % (10.0-50.0); Mean Corpuscular Hemoglobin 28.8 pg (28.0-32.0); Mean Corpuscular Hgb Conc. 33.6 g/dL (32.0-36.0); Mean Corpuscular Volume 85.9 fL (80.0-100.0); Monocytes # (auto) 0.4 10 ^3/uL (0-1.3); Monocytes % (auto) 5.2 % (0.0-12.0); Neutrophils # (auto) 6.3 10 ^3/uL (1.6-8.6); Neutrophils % (auto) 78.5 % (37.0-80.0); Platelet Count (auto) 191 10^3/uL (140-450); Red Blood Cells 4.95 10^6/uL (4.0-5.20)
[2020-03-12 09:09] LABS: BUN/Creatinine Ratio 32.7; Calcium 8.9 mg/dL (8.5-10.1); Potassium 3.6 mmol/L (3.5-5.1)
[2020-03-12] MEDS: FLORASTOR (S. BOULARDII) 250 MG CAP PO SCH ×2 (09:19→21:51)
[2020-03-12] MEDS: ZINC SULFATE 220mg CAP or TAB PO SCH (09:19)
[2020-03-12] MEDS: FAMOTIDINE 20 MG TAB PO SCH (09:19)
[2020-03-12] MEDS: CHOLECALCIFEROL (VITD3) 2,000 UNIT CAP PO SCH (09:19)
[2020-03-12] MEDS: ASCORBIC ACID 1,000 MG TAB PO SCH (09:19)
[2020-03-12] MEDS: ENOXAPARIN SOD 120 MG/0.8 ML SYRINGE SC SCH ×2 (09:20→21:51)
[2020-03-12] MEDS: LINEZOLID 600MG TABLET PO SCH ×2 (09:20→21:52)
[2020-03-12] MEDS: FUROSEMIDE 40 MG/4 ML VIAL IV SCH (10:07)
[2020-03-12] MEDS: guaiFENesin-DM 100/10mg/5ml SYR PO PRN ×2 (10:07→21:52)
[2020-03-12 16:00] VITALS: BP 100/62
[2020-03-13] VITALS: BP 113/62
[2020-03-13] MEDS: PIPERACILLIN-TAZOB 3.375GM 100 ML IV SCH ×4 (00:26→22:15)
[2020-03-13] MEDS: ACCU-CHEK COMFORT CURVE STRIP VI SCH ×5 (00:26→23:59)
[2020-03-13] MEDS: InsuLIN REG 1unit/0.01ml Soln (100units/ml) SC SCH ×5 (00:30→23:59)
[2020-03-13] MEDS: LEVOTHYROXINE SODIUM 25 MCG TAB PO SCH (06:20)
[2020-03-13] MEDS: BUDESONIDE (INHALATION) 180 MCG IH IN SCH ×2 (07:13→19:29)
[2020-03-13] MEDS: ALBUTEROL SULF HFA 90MCG INH 200DOSE IN PRN ×2 (07:14→19:29)
[2020-03-13 08:00] VITALS: BP 108/54
[2020-03-13 08:02] LABS: Basophils # (auto) 0.1 10 ^3/uL (0-0.2); Basophils % (auto) 0.7 % (0.0-2.0); Eosinophils # (auto) 1.3 10 ^3/uL (0-0.8); Eosinophils % (auto) 13.8 % (0.0-7.0); Hematocrit 43.2 % (36.0-46.0); Hemoglobin 14.5 g/dL (12.2-16.2); Lymphocytes # (auto) 0.8 10 ^3/uL (0.4-5.4); Lymphocytes % (auto) 8.8 % (10.0-50.0); Mean Corpuscular Hemoglobin 28.9 pg (28.0-32.0); Mean Corpuscular Hgb Conc. 33.6 g/dL (32.0-36.0); Mean Corpuscular Volume 85.8 fL (80.0-100.0); Monocytes # (auto) 0.4 10 ^3/uL (0-1.3); Monocytes % (auto) 4.3 % (0.0-12.0); Neutrophils # (auto) 6.6 10 ^3/uL (1.6-8.6); Neutrophils % (auto) 72.4 % (37.0-80.0); Platelet Count (auto) 170 10^3/uL (140-450); Red Blood Cells 5.03 10^6/uL (4.0-5.20); Red Cell Distribution Width 17.3 % (11.8-14.3); White Blood Cell 9.1 10^3/uL (4.4-10.8)
[2020-03-13 08:23] LABS: Potassium 3.6 mmol/L (3.5-5.1)
[2020-03-13 08:46] LABS: BUN/Creatinine Ratio 27.5; Calcium 9.2 mg/dL (8.5-10.1)
[2020-03-13] MEDS: FLORASTOR (S. BOULARDII) 250 MG CAP PO SCH ×2 (09:30→22:15)
[2020-03-13] MEDS: ASCORBIC ACID 1,000 MG TAB PO SCH (09:30)
[2020-03-13] MEDS: ZINC SULFATE 220mg CAP or TAB PO SCH (09:30)
[2020-03-13] MEDS: FUROSEMIDE 40 MG/4 ML VIAL IV SCH (09:30)
[2020-03-13] MEDS: FAMOTIDINE 20 MG TAB PO SCH (09:30)
[2020-03-13] MEDS: LINEZOLID 600MG TABLET PO SCH ×2 (09:37→22:15)
[2020-03-13] MEDS: ENOXAPARIN SOD 120 MG/0.8 ML SYRINGE SC SCH ×2 (09:37→22:16)
[2020-03-13] MEDS: CHOLECALCIFEROL (VITD3) 2,000 UNIT CAP PO SCH (09:37)
[2020-03-13] MEDS: guaiFENesin-DM 100/10mg/5ml SYR PO PRN ×2 (10:09→20:18)
[2020-03-13 16:22] VITALS: BP 99/64
[2020-03-14] VITALS: BP 120/69
[2020-03-14] MEDS: ACCU-CHEK COMFORT CURVE STRIP VI SCH ×3 (05:54→18:00)
[2020-03-14] MEDS: PIPERACILLIN-TAZOB 3.375GM 100 ML IV SCH ×3 (05:54→22:29)
[2020-03-14] MEDS: InsuLIN REG 1unit/0.01ml Soln (100units/ml) SC SCH ×3 (05:54→18:00)
[2020-03-14] MEDS: LEVOTHYROXINE SODIUM 25 MCG TAB PO SCH (05:55)
[2020-03-14 07:22] LABS: Basophils # (auto) 0 10 ^3/uL (0-0.2); Basophils % (auto) 0.6 % (0.0-2.0); Eosinophils # (auto) 1.1 10 ^3/uL (0-0.8); Eosinophils % (auto) 14.5 % (0.0-7.0); Hematocrit 40.5 % (36.0-46.0); Hemoglobin 13.5 g/dL (12.2-16.2); Lymphocytes # (auto) 0.7 10 ^3/uL (0.4-5.4); Lymphocytes % (auto) 9.7 % (10.0-50.0); Mean Corpuscular Hemoglobin 28.4 pg (28.0-32.0); Mean Corpuscular Hgb Conc. 33.3 g/dL (32.0-36.0); Mean Corpuscular Volume 85.3 fL (80.0-100.0); Monocytes # (auto) 0.3 10 ^3/uL (0-1.3); Monocytes % (auto) 4.6 % (0.0-12.0); Neutrophils # (auto) 5.3 10 ^3/uL (1.6-8.6); Neutrophils % (auto) 70.6 % (37.0-80.0); Nucleated Red Blood Cells % 0.1 %; Platelet Count (auto) 167 10^3/uL (140-450); Red Blood Cells 4.75 10^6/uL (4.0-5.20); Red Cell Distribution Width 17.3 % (11.8-14.3); White Blood Cell 7.5 10^3/uL (4.4-10.8)
[2020-03-14 07:44] LABS: Potassium 3.4 mmol/L (3.5-5.1)
[2020-03-14] MEDS: BUDESONIDE (INHALATION) 180 MCG IH IN SCH ×2 (07:46→22:00)
[2020-03-14] MEDS: ALBUTEROL SULF HFA 90MCG INH 200DOSE IN PRN (07:46)
[2020-03-14 07:51] LABS: BUN/Creatinine Ratio 21.2; Calcium 8.8 mg/dL (8.5-10.1)
[2020-03-14 08:00] VITALS: BP 120/71
[2020-03-14] MEDS: FLORASTOR (S. BOULARDII) 250 MG CAP PO SCH ×2 (09:07→22:29)
[2020-03-14] MEDS: ASCORBIC ACID 1,000 MG TAB PO SCH (09:07)
[2020-03-14] MEDS: FUROSEMIDE 40 MG/4 ML VIAL IV SCH (09:07)
[2020-03-14] MEDS: ZINC SULFATE 220mg CAP or TAB PO SCH (09:07)
[2020-03-14] MEDS: ENOXAPARIN SOD 120 MG/0.8 ML SYRINGE SC SCH ×2 (09:08→22:29)
[2020-03-14] MEDS: CHOLECALCIFEROL (VITD3) 2,000 UNIT CAP PO SCH (09:08)
[2020-03-14] MEDS: FAMOTIDINE 20 MG TAB PO SCH (10:00)
[2020-03-14] MEDS: LINEZOLID 600MG TABLET PO SCH ×2 (10:00→22:29)
[2020-03-14] MEDS ORDERED: POTASSIUM CHL 20 Meq TABLET PO ONE (17:30)
[2020-03-14] MEDS: guaiFENesin-DM 100/10mg/5ml SYR PO PRN (18:34)
[2020-03-14 20:00] VITALS: BP 106/71
[2020-03-15] VITALS: BP 106/76
[2020-03-15] MEDS: guaiFENesin-DM 100/10mg/5ml SYR PO PRN ×2 (00:12→06:55)
[2020-03-15] MEDS: ACCU-CHEK COMFORT CURVE STRIP VI SCH ×4 (00:13→18:21)
[2020-03-15] MEDS: InsuLIN REG 1unit/0.01ml Soln (100units/ml) SC SCH ×4 (00:20→18:00)
[2020-03-15] MEDS: BUDESONIDE (INHALATION) 180 MCG IH IN SCH ×2 (06:04→18:50)
[2020-03-15] MEDS: ALBUTEROL SULF HFA 90MCG INH 200DOSE IN PRN ×2 (06:04→18:50)
[2020-03-15] MEDS: PIPERACILLIN-TAZOB 3.375GM 100 ML IV SCH ×3 (06:15→21:05)
[2020-03-15] MEDS: LEVOTHYROXINE SODIUM 25 MCG TAB PO SCH (06:17)
[2020-03-15 08:00] VITALS: BP 95/69
[2020-03-15] MEDS: ENOXAPARIN SOD 120 MG/0.8 ML SYRINGE SC SCH (10:00)
[2020-03-15] MEDS: FUROSEMIDE 40 MG/4 ML VIAL IV SCH (10:00)
[2020-03-15] MEDS: ZINC SULFATE 220mg CAP or TAB PO SCH (10:54)
[2020-03-15] MEDS: FLORASTOR (S. BOULARDII) 250 MG CAP PO SCH ×2 (10:54→21:06)
[2020-03-15] MEDS: FAMOTIDINE 20 MG TAB PO SCH (10:55)
[2020-03-15] MEDS: ASCORBIC ACID 1,000 MG TAB PO SCH (10:55)
[2020-03-15] MEDS: CHOLECALCIFEROL (VITD3) 2,000 UNIT CAP PO SCH (10:55)
[2020-03-15] MEDS: LINEZOLID 600MG TABLET PO SCH ×2 (10:55→21:05)
[2020-03-15] MEDS: guaiFENesin-CODEINE Liq 5 ML UD PO PRN ×2 (14:03→21:04)
[2020-03-15 16:00] VITALS: BP 106/65
[2020-03-15 20:00] VITALS: BP 101/61
[2020-03-15] MEDS: APIXABAN 5 MG TAB PO SCH (21:05)
[2020-03-16 00:08] VITALS: BP 101/61
[2020-03-16] MEDS: guaiFENesin-CODEINE Liq 5 ML UD PO PRN ×4 (04:52→23:29)
[2020-03-16] MEDS: PIPERACILLIN-TAZOB 3.375GM 100 ML IV SCH ×3 (05:49→21:14)
[2020-03-16] MEDS: ACCU-CHEK COMFORT CURVE STRIP VI SCH ×4 (05:49→18:15)
[2020-03-16] MEDS: InsuLIN REG 1unit/0.01ml Soln (100units/ml) SC SCH ×4 (05:50→18:33)
[2020-03-16] MEDS: LEVOTHYROXINE SODIUM 25 MCG TAB PO SCH (06:13)
[2020-03-16 08:00] VITALS: BP 127/81
[2020-03-16] MEDS: BUDESONIDE (INHALATION) 180 MCG IH IN SCH ×2 (09:32→19:16)
[2020-03-16] MEDS: ALBUTEROL SULF HFA 90MCG INH 200DOSE IN PRN ×2 (09:33→19:16)
[2020-03-16] MEDS: FUROSEMIDE 40 MG/4 ML VIAL IV SCH (10:26)
[2020-03-16] MEDS: FLORASTOR (S. BOULARDII) 250 MG CAP PO SCH ×2 (10:27→21:13)
[2020-03-16] MEDS: ASCORBIC ACID 1,000 MG TAB PO SCH (10:27)
[2020-03-16] MEDS: ZINC SULFATE 220mg CAP or TAB PO SCH (10:27)
[2020-03-16] MEDS: APIXABAN 5 MG TAB PO SCH ×2 (10:27→21:13)
[2020-03-16] MEDS: FAMOTIDINE 20 MG TAB PO SCH (10:27)
[2020-03-16] MEDS: LINEZOLID 600MG TABLET PO SCH ×2 (10:27→21:14)
[2020-03-16] MEDS: CHOLECALCIFEROL (VITD3) 2,000 UNIT CAP PO SCH (10:27)
[2020-03-16 16:00] VITALS: BP 108/69
[2020-03-16 23:31] VITALS: BP 112/64
[2020-03-17] MEDS: guaiFENesin-CODEINE Liq 5 ML UD PO PRN ×4 (04:32→20:33)
[2020-03-17] MEDS: PIPERACILLIN-TAZOB 3.375GM 100 ML IV SCH (05:13)
[2020-03-17] MEDS: ACCU-CHEK COMFORT CURVE STRIP VI SCH ×4 (05:14→18:05)
[2020-03-17] MEDS: LEVOTHYROXINE SODIUM 25 MCG TAB PO SCH (05:14)
[2020-03-17] MEDS: InsuLIN REG 1unit/0.01ml Soln (100units/ml) SC SCH ×4 (05:32→18:00)
[2020-03-17 05:51] LABS: Basophils # (auto) 0 10 ^3/uL (0-0.2); Basophils % (auto) 0.6 % (0.0-2.0); Eosinophils # (auto) 0.7 10 ^3/uL (0-0.8); Eosinophils % (auto) 11.9 % (0.0-7.0); Hematocrit 37.5 % (36.0-46.0); Hemoglobin 12.5 g/dL (12.2-16.2); Lymphocytes # (auto) 0.6 10 ^3/uL (0.4-5.4); Mean Corpuscular Hgb Conc. 33.5 g/dL (32.0-36.0); Mean Corpuscular Volume 86.5 fL (80.0-100.0); Monocytes # (auto) 0.3 10 ^3/uL (0-1.3); Monocytes % (auto) 5.4 % (0.0-12.0); Neutrophils % (auto) 71.1 % (37.0-80.0); Platelet Count (auto) 122 10^3/uL (140-450); Red Blood Cells 4.33 10^6/uL (4.0-5.20); Red Cell Distribution Width 17.6 % (11.8-14.3); White Blood Cell 5.7 10^3/uL (4.4-10.8)
[2020-03-17 06:10] LABS: INR 1.06 (0.9-1.15); Partial Thromboplastin Time 32.8 sec (23.0-31.2)
[2020-03-17 06:27] LABS: Potassium 3.4 mmol/L (3.5-5.1)
[2020-03-17] MEDS: ALBUTEROL SULF HFA 90MCG INH 200DOSE IN PRN ×2 (06:34→21:40)
[2020-03-17] MEDS: BUDESONIDE (INHALATION) 180 MCG IH IN SCH ×2 (06:34→22:58)
[2020-03-17 06:36] LABS: Albumin 2.9 g/dL (3.4-5.0); Bilirubin, Total 0.9 mg/dL (0.2-1.0); Calcium 8.5 mg/dL (8.5-10.1); Magnesium 2.4 mg/dL (1.6-2.6); Phosphorus 3.4 mg/dL (2.5-4.90)
[2020-03-17 08:00] VITALS: BP 126/64
[2020-03-17] MEDS: ZINC SULFATE 220mg CAP or TAB PO SCH (10:08)
[2020-03-17] MEDS: FLORASTOR (S. BOULARDII) 250 MG CAP PO SCH ×2 (10:09→22:59)
[2020-03-17] MEDS: LINEZOLID 600MG TABLET PO SCH ×2 (10:09→22:00)
[2020-03-17] MEDS: CHOLECALCIFEROL (VITD3) 2,000 UNIT CAP PO SCH (10:09)
[2020-03-17] MEDS: FAMOTIDINE 20 MG TAB PO SCH (10:09)
[2020-03-17] MEDS: ASCORBIC ACID 1,000 MG TAB PO SCH (10:09)
[2020-03-17] MEDS: APIXABAN 5 MG TAB PO SCH ×2 (10:10→22:59)
[2020-03-17] MEDS: FUROSEMIDE 40 MG/4 ML VIAL IV SCH (10:10)
[2020-03-17] MEDS ORDERED: POTASSIUM CHL 20 Meq TABLET PO ONE (14:00)
[2020-03-17 16:00] VITALS: BP 106/86
[2020-03-17 23:59] VITALS: BP 113/66
[2020-03-18] MEDS: ACCU-CHEK COMFORT CURVE STRIP VI SCH ×3 (00:17→11:40)
[2020-03-18] MEDS: InsuLIN REG 1unit/0.01ml Soln (100units/ml) SC SCH ×3 (06:00→11:49)
[2020-03-18] MEDS: LEVOTHYROXINE SODIUM 25 MCG TAB PO SCH (06:30)
[2020-03-18 08:00] VITALS: BP 122/56
[2020-03-18] MEDS: APIXABAN 5 MG TAB PO SCH (08:59)
[2020-03-18] MEDS: FUROSEMIDE 40 MG/4 ML VIAL IV SCH (08:59)
[2020-03-18] MEDS: ZINC SULFATE 220mg CAP or TAB PO SCH (08:59)
[2020-03-18] MEDS: FLORASTOR (S. BOULARDII) 250 MG CAP PO SCH (08:59)
[2020-03-18] MEDS: LINEZOLID 600MG TABLET PO SCH (09:00)
[2020-03-18] MEDS: FAMOTIDINE 20 MG TAB PO SCH (09:00)
[2020-03-18] MEDS: ASCORBIC ACID 1,000 MG TAB PO SCH (09:00)
[2020-03-18] MEDS: CHOLECALCIFEROL (VITD3) 2,000 UNIT CAP PO SCH (09:00)
[2020-03-18] MEDS: guaiFENesin-CODEINE Liq 5 ML UD PO PRN (10:00)
[2020-03-18] MEDS: ERGOCALCIFEROL 50,000 UNIT(1.25MG) CAP PO SCH (11:48)
[2020-03-18 12:25] VITALS: BP 122/56
== END 2020-03-18 13:05 | disposition home or self-care (01) | DRG 177 ==
LOC: ER 10:10 → EDBD 10:10 → TELE-CENTR 10:11 → TELE 02-18 00:54 → TELE-WESTW 02-18 22:04
PROVIDERS: ADMIT Nurse Practitioner Acute Care; ATTEND Internal Medicine
PROC: XW033E5 Introduction of Remdesivir Anti-infective into Peripheral Vein, Percutaneous Approach, New Technology Group 5 (ICD-10-PCS; principal; 2020-02-17)
PROC: 5A09557 Assistance with Respiratory Ventilation, Greater than 96 Consecutive Hours, Continuous Positive Airway Pressure (ICD-10-PCS; 2020-02-17)
PROC: XW13325 Transfusion of Convalescent Plasma (Nonautologous) into Peripheral Vein, Percutaneous Approach, New Technology Group 5 (ICD-10-PCS; 2020-02-19)
PROC: 05HB33Z Insertion of Infusion Device into Right Basilic Vein, Percutaneous Approach (ICD-10-PCS; 2020-03-05)
PROC: B54MZZA Ultrasonography of Right Upper Extremity Veins, Guidance (ICD-10-PCS; 2020-03-05)
DX: U07.1 COVID-19 (principal); J96.01 Acute respiratory failure with hypoxia; J12.82 Pneumonia due to coronavirus disease 2019; D68.59 Other primary thrombophilia; I82.401 Acute embolism and thrombosis of unspecified deep veins of right lower extremity; Z68.43 Body mass index [BMI] 50.0-59.9, adult; E03.9 Hypothyroidism, unspecified; E11.9 Type 2 diabetes mellitus without complications; E55.9 Vitamin D deficiency, unspecified; E66.01 Morbid (severe) obesity due to excess calories; E78.5 Hyperlipidemia, unspecified; E86.1 Hypovolemia; E88.09 Other disorders of plasma-protein metabolism, not elsewhere classified; J98.2 Interstitial emphysema; I11.0 Hypertensive heart disease with heart failure; I25.10 Atherosclerotic heart disease of native coronary artery without angina pectoris; I50.9 Heart failure, unspecified; I95.89 Other hypotension; Z79.84 Long term (current) use of oral hypoglycemic drugs; Z79.899 Other long term (current) drug therapy; Z82.49 Family history of ischemic heart disease and other diseases of the circulatory system; Z83.3 Family history of diabetes mellitus
CPT/HCPCS: 36415; 36600; 71045; 71250; 80048; 80053; 82040; 82270; 82306; 82728; 82805; 82962; 83036; 83605; 83615; 83735; 83880; 84100; 84439; 84443; 84478; 84484; 85007; 85025; 85027; 85379; 85610; 85730; 86141; 86850; 86900; 86901; 87040; 87086; 87426; 87804; 93005; 93970; 94640; 94660; 96365; 96367; 96375; 97110; 97116; 97163; 97530; G0378; J0696; J1100; J1815; J2543; J3490; J7131

== ENCOUNTER 2022-02-03 21:05 | Emergency (ER) | payer OTHER ==
[~2022-02-03] VITALS: Ht 170.2 cm; Wt 147.0 kg
[2022-02-03 21:43] LABS: Basophils # (auto) 0 10 ^3/uL (0-0.2); Basophils % (auto) 0.6 % (0.0-2.0); Eosinophils # (auto) 0.2 10 ^3/uL (0-0.8); Hematocrit 48.5 % (36.0-46.0); Hemoglobin 15.3 g/dL (12.2-16.2); Lymphocytes # (auto) 1.5 10 ^3/uL (0.4-5.4); Lymphocytes % (auto) 23.9 % (10.0-50.0); Mean Corpuscular Hemoglobin 27.5 pg (28.0-32.0); Mean Corpuscular Hgb Conc. 31.6 g/dL (32.0-36.0); Monocytes # (auto) 0.3 10 ^3/uL (0-1.3); Monocytes % (auto) 4.9 % (0.0-12.0); Neutrophils # (auto) 4.1 10 ^3/uL (1.6-8.6); Neutrophils % (auto) 66.6 % (37.0-80.0); Nucleated Red Blood Cells % 0.1 %; Red Blood Cells 5.57 10^6/uL (4.0-5.20); Red Cell Distribution Width 17.4 % (11.8-14.3); White Blood Cell 6.1 10^3/uL (4.4-10.8)
[2022-02-03 22:00] LABS: Albumin 3.5 g/dL (3.4-5.0); BUN/Creatinine Ratio 14.6; Calcium 8.8 mg/dL (8.5-10.1); Potassium 4.3 mmol/L (3.5-5.1)
[2022-02-03 22:03] LABS: Bilirubin, Total 0.4 mg/dL (0.2-1.0); Total Protein 7.3 g/dL (6.4-8.2)
[2022-02-03] MEDS ORDERED: IOHEXOL 350 MG/ML 100ML IJ ONE (22:41)
[2022-02-04 02:27] VITALS: BP 116/62
[2022-02-04] MEDS ORDERED: PRED20TA2 PO (02:58)
[2022-02-04] MEDS ORDERED: ACYC-166 PO (02:58)
== END 2022-02-04 03:15 | disposition home or self-care (01) ==
LOC: ER 21:08
DX: G51.0 Bell's palsy (principal); I11.0 Hypertensive heart disease with heart failure; I50.9 Heart failure, unspecified; E11.9 Type 2 diabetes mellitus without complications; E78.5 Hyperlipidemia, unspecified
CPT/HCPCS: 36415; 70450; 70496; 80053; 83735; 83880; 84484; 85025; 85610; 85730; 93005; 99285; Q9967